=== PATIENT | female | born 1985 | race Caucasian/White ===

== ENCOUNTER → 2017-03-26 | Outpatient (CLI) | payer OTHER ==
--- NOTE | 2017-03-26 10:34 | US ---
EXAMINATION TYPE: US OB >= 14 wk fetus DATE OF EXAM: 03/26/2017 COMPARISON: None CLINICAL HISTORY: Z36 confirm dates, unknown dates TECHNIQUE: OBTA GESTATIONAL AGE / DATING Physician Established: (14 weeks/1 days) EDC: Dates by LMP: LMP unknown Dates by First Scan: No previous this is first scan Dates by Current Scan: (14 weeks/5 days) EDC: 09/19/2017 Beta HCG (if available): Not available at this time SURVEY IUP: Single PLACENTA: Posterior PREVIA: No Previa SHAKIRA: 11.4 cm Normal CERVICAL LENGTH (transabdominal: norm > 3.0cm): 3.5 cm BIOMETRY PRESENTATION: Vertex LIE: Longitudinal BPD: 2.6 cm 14 weeks / 4 days HC: 10.4 cm 14 weeks / 6 days AC: 8.9 cm 15 weeks / 1 days FL: 1.5 cm 14 weeks / 3 days ESTIMATED WEIGHT IN GRAMS: 106 grams ESTIMATED WEIGHT IN LBS/OZ: 0 lbs. 4 oz. WEIGHT PERCENTAGE BASED ON ESTABLISHED DATES: 80% HC/AC: 1.1 Normal FL/AC: 16.7 Normal HEART RATE: 159 bpm RHYTHM: Normal IMPRESSION: 1. Single intrauterine gestation estimated at 14 weeks 5 days gestation based on the current ultrasou nd measurements. This would have a calculated EDC of 09/19/2017. Correlate this with her physician est ablished EDC. 2. Cardiac activity measures 159 bpm.
== END | disposition home or self-care (01) ==
LOC: RADUSWWP 08:54
PROVIDERS: ATTEND Obstetrics & Gynecology
DX: Z36.89 Encounter for other specified antenatal screening (principal); Z3A.14 14 weeks gestation of pregnancy
CPT/HCPCS: 76801; 76805

== ENCOUNTER 2017-07-29 15:49 | Outpatient (CLI) | payer OTHER ==
[2017-07-29 16:49] LABS: ALT 23 U/L (9-52); AST 20 U/L (14-36); Blood Urea Nitrogen 10 mg/dL (7-17); LDH 411 U/L (313-618); Uric Acid 5.1 mg/dL (3.7-7.4)
[2017-07-29 16:59] LABS: Appearance,Urine Cloudy (Clear); Bacteria,Urine Rare /hpf; Bilirubin,Urine Negative (Negative); Blood,Urine Small (Negative); Color,Urine Yellow; Glucose,Urine (UA) Negative (Negative); Hyaline Casts,Urine 35 /lpf (0-2); Ketones,Urine Trace (Negative); Leukocyte Esterase,Urine Small (Negative); Mucus,Urine Few /hpf; Nitrite,Urine Negative (Negative); Protein,Urine 1+ (Negative); RBC,Urine 30 /hpf (0-5); Specific Gravity,Urine 1.028 (1.001-1.035); Squamous Epithelial Cell,Urine 14 /hpf (0-4); WBC,Urine 11 /hpf (0-5)
[2017-07-29 17:03] LABS: Basophils % (A) 0 %; Eosinophils % (A) 0 %; HCT 40.3 % (34.0-46.0); HGB 13.9 gm/dL (11.4-16.0); Lymphocytes # (A) 1.7 k/uL (1.0-4.8); Lymphocytes % (A) 18 %; MCH 30.8 pg (25.0-35.0); MCHC 34.4 g/dL (31.0-37.0); MCV 89.4 fL (80.0-100.0); Mean Platelet Volume 10.5; Monocytes # (A) 0.4 k/uL (0-1.0); Monocytes % (A) 4 %; Neutrophils # (A) 7.2 k/uL (1.3-7.7); Neutrophils % (A) 76 %; Platelet Count 127 k/uL (150-450); RDW 13.4 % (11.5-15.5); WBC 9.5 k/uL (3.8-10.6)
== END 2017-07-29 17:32 | disposition home or self-care (01) ==
LOC: FBPOP 15:49
PROVIDERS: ATTEND Obstetrics & Gynecology
DX: O13.3 Gestational [pregnancy-induced] hypertension without significant proteinuria, third trimester (principal); Z3A.32 32 weeks gestation of pregnancy
CPT/HCPCS: 59025; 81001; 82565; 82570; 83615; 84156; 84450; 84460; 84520; 84550; 85025

== ENCOUNTER 2017-09-19 06:06 | Inpatient (IN) | payer OTHER ==
--- NOTE | 2017-09-18 14:45 | P.HPOB ---
History of Present Illness H&P Date: 09/18/17 Chief Complaint: Repeat low transverse 31 year old presents for repeat low transverse possible tubal ligation. Review of Systems All systems: negative Constitutional: Denies chills, Denies fever Eyes: denies blurred vision, denies pain Ears, nose, mouth and throat: Denies headache, Denies sore throat Cardiovascular: Denies chest pain, Denies shortness of breath Respiratory: Denies cough Gastrointestinal: Denies abdominal pain, Denies diarrhea, Denies nausea, Denies vomiting Genitourinary: Denies dysuria, Denies hematuria Musculoskeletal: Denies myalgias Integumentary: Denies pruritus, Denies rash Neurological: Denies numbness, Denies weakness Psychiatric: Denies anxiety, Denies depression Endocrine: Denies fatigue, Denies weight change Past Medical History Past Medical History: Musculoskeletal Disorder (back pain) Additional Past Medical History / Comment(s): OB history: 2 EABs, 1 SAB, 2 previous c-sections. This is her sixth and she has had care with me since 12 weeks. O+, abs neg, Rub Imm, RPR NR, Hep B neg, toxo neg. GBS neg. UDS was done at 35 weeks and positive for benzodiazepines, marijuana and opiates. when confronted, pt admitted to taking norco a few times a week, some xanax, and smoking some marijuana. She was told several times these were not safe in . History of Any Multi-Drug Resistant Organisms: None Reported Past Surgical History: Section Additional Past Surgical History / Comment(s): cardiac ablation Past Psychological History: No Psychological Hx Reported, Anxiety, Depression Smoking Status: Light tobacco smoker Past Alcohol Use History: None Reported Past Drug Use History: Marijuana, Opiates Medications and Allergies Home Medications Medication Instructions Recorded Confirmed Type Citalopram Hydrobromide [CeleXA] 40 mg PO DAILY 07/29/17 07/29/17 History Zolpidem [Ambien] 10 mg PO HS PRN 07/29/17 07/29/17 History Allergies Allergy/AdvReac Type Severity Reaction Status Date / Time No Known Allergies Allergy Verified 07/29/17 15:54 Exam Osteopathic Statement: *. No significant issues noted on an osteopathic structural exam other than those noted in the History and Physical/Consult. Heart: RRR Lungs: CTAB Abdomen: soft, nontender Extremeties: neg tulio's Assessment and Plan (1) Previous section Status: Acute Code(s): Z98.891 - HISTORY OF UTERINE SCAR FROM PREVIOUS SURGERY SNOMED Code(s): 862078521 (2) 39 weeks gestation of Status: Acute Code(s): Z3A.39 - 39 WEEKS GESTATION OF SNOMED Code( s): 58225363 Plan: 1. repeat low transverse with possible tubal ligation
[2017-09-19] MEDS ORDERED: ceFAZolin IN SWFI 2 GM/20 ML SYRINGE IVP ONE (06:13)
[2017-09-19] MEDS ORDERED: CITRIC ACID-SODIUM CITRATE 15 ML CUP PO ONE (06:13)
[2017-09-19] MEDS: LACTATED RINGERS 1,000 ML IV SCH ×2 (06:20→15:34)
[2017-09-19 06:26] VITALS: BMI 40.7
[2017-09-19 06:54] LABS: Basophils % (A) 0 %; Eosinophils # (A) 0.1 k/uL (0-0.7); Eosinophils % (A) 1 %; HCT 37.1 % (34.0-46.0); Lymphocytes # (A) 2.1 k/uL (1.0-4.8); Lymphocytes % (A) 28 %; MCH 30.9 pg (25.0-35.0); MCHC 35.1 g/dL (31.0-37.0); MCV 87.8 fL (80.0-100.0); Mean Platelet Volume 12.8; Monocytes # (A) 0.4 k/uL (0-1.0); Monocytes % (A) 5 %; Neutrophils # (A) 4.7 k/uL (1.3-7.7); Neutrophils % (A) 64 %; RBC 4.22 m/uL (3.80-5.40); RDW 14.4 % (11.5-15.5); WBC 7.3 k/uL (3.8-10.6)
[2017-09-19 07:19] LABS: Platelet Count 99 k/uL (150-450)
[2017-09-19 07:21] LABS: Amphetamine Screen,Urine Not Detected (NotDetected); Benzodiazepines Screen,Urine Detected (NotDetected); Cocaine Screen,Urine Not Detected (NotDetected); Opiate Screen,Urine Not Detected (NotDetected); Phencyclidine Screen,Urine Not Detected (NotDetected); Urn Cannabinoid Scrn Detected (NotDetected)
[2017-09-19 07:22] LABS: Barbiturate Screen,Urine Not Detected (NotDetected); Methadone Screen, Urine Not Detected (NotDetected); Oxycodone Screen, Urine Not Detected (NotDetected); Tricyclic Antidepressant,Urine Not Detected (NotDetected)
[2017-09-19] MEDS ORDERED: fentaNYL (PF) 50 MCG/ML 2 ML AMP ONE (07:58)
[2017-09-19] MEDS ORDERED: PHENYLEPHRINE-0.9% NACL SYG 1 MG/10 ML SYRINGE ONE (07:58)
[2017-09-19] MEDS ORDERED: KETOROLAC 30 MG/ML 1 ML VIAL ONE (07:58)
[2017-09-19] MEDS ORDERED: ONDANSETRON 4 MG/2 ML VIAL ONE (07:58)
[2017-09-19] MEDS ORDERED: OXYTOCIN 10 UNIT/ML 1 ML VIAL ONE (07:58)
[2017-09-19] MEDS ORDERED: MORPHINE SULFATE (PF) 0.3 MG/0.3 ML SYR ONE (07:58)
[2017-09-19] MEDS ORDERED: NALBUPHINE 10 MG/ML VIAL (10ML MDV) ONE (07:58)
[2017-09-19] MEDS ORDERED: METOCLOPRAMIDE 5 MG/ML 2 ML VIAL IVP PRN (08:41)
[2017-09-19] MEDS ORDERED: NALOXONE 0.4 MG/ML 1 ML VIAL IV PRN (08:41)
[2017-09-19] MEDS ORDERED: ONDANSETRON 4 MG/2 ML VIAL IVP PRN (08:41)
[2017-09-19] MEDS ORDERED: HYDROmorphone 0.5 MG/0.5 ML SYRINGE IVP PRN (08:41)
[2017-09-19] MEDS ORDERED: HYDROcodone/APAP 7.5-325MG 1 EACH TAB PO PRN (08:48)
[2017-09-19] MEDS ORDERED: diphenhydrAMINE 50 MG/ML 1 ML VIAL IVP PRN ×2 (08:48)
[2017-09-19] MEDS ORDERED: ACETAMINOPHEN TAB 325 MG TAB PO PRN (08:48)
[2017-09-19] MEDS ORDERED: ZOLPIDEM 5 MG TAB PO PRN (08:48)
[2017-09-19] MEDS ORDERED: diphenhydrAMINE 50 MG CAP PO PRN (08:48)
[2017-09-19] MEDS ORDERED: diphenhydrAMINE 25 MG CAP PO PRN (08:48)
[2017-09-19] MEDS ORDERED: SIMETHICONE 80 MG CHEWABLE PO PRN (08:48)
--- NOTE | 2017-09-19 08:54 | P.OP ---
Date of Procedure: 09/19/17 Preoperative Diagnosis: 1. at 39 weeks 3 days 2. previous 3. family planning Postoperative Diagnosis: same Procedure(s) Performed: Repeat low transverse with tubal ligation Anesthesia: spinal Surgeon: Susie Manriquez Cutting Room Supervisor #1: Elder Henderson Estimated Blood Loss (ml): 500 IV fluids (ml): 600 Urine output (ml): 100 Pathology: other (placenta) Condition: stable Disposition: floor Operative Findings: viable infant, 9,9, weight 7#4oz Description of Procedure: Patient was taken to the operating room where spinal anesthesia was found be adequate. She was prepped and draped in normal sterile fashion in dorsal supine position with a leftward tilt. Pfannenstiel skin incision was made the scalpel and carried through to the underlying layer of fascia with the scalpel. Fascia was incised in midline and carried bilaterally with the Amaya scissors. The superior aspect of the fascial incision was grasped with David clamps elevated and the underlying rectus muscles dissected off with the Amaya's. Attention was then turned to inferior aspect of same incision which in a similar fashion was grasped tented up and the underlying rectus muscles dissected off with the Amaya's. The rectus muscles were the midline and the peritoneum was identified tented up and entered sharply with the scalpel. The incision was extended superiorly and inferiorly with good visualization of the bladder. The bladder blade was inserted and the vesicouterine peritoneum was incised the Metzenbaums then carried bilaterally and bladder flap created digitally. A low transverse incision was then made on the uterus with the scalpel. This was carried bilaterally and digital manner. Infant's head delivered atraumatically, nose and mouth bulb suctioned, cord clamped and cut, infant handed off to waiting nurses. Apgars 9,9, weight 7 lbs. 4 oz. Placenta delivered manually, intact with three-vessel cord. The uterus is exteriorized and cleared of all clots and debris. The uterine incision was closed with 0 Vicryl in a running locked fashion. Second layer of the same sutures used in imbricating fashion to obtain excellent hemostasis. Bladder flap was then reapproximated using 2-0 Vicryl in a running fashion. Both ovaries and tubes appeared normal. The right fallopian tube was grasped with a hemostat and a window was made in the mesosalpinx with the Bovie. The right fallopian tube was doubly ligated and a portion was removed. The pedicles were cauterized with the Bovie. The left fallopian tube was grasped with a hemostat and a window was made in the mesosalpinx with the Bovie. The left fallopian tube was doubly ligated and a portion was removed. The pedicles were cauterized with the Bovie. The uterus was placed back into the abdomen. The peritoneum was reapproximated using 2-0 Vicryl in a running fashion. The muscles were reapproximated using 2-0 Vicryl in interrupted fashion. The fascia was reapproximated using 0 Vicryl in a running fashion. The subcutaneous tissues closed with 3-0 Vicryl running fashion. The skin was closed solo. Patient tolerated the procedure well, sponge and instrument counts were correct times 2 and she was taken to the recovery room in stable condition.
[2017-09-19] MEDS ORDERED: OXYTOCIN 20 UNITS/1000 ML NS 1,000 ML IV SCH (09:00)
[2017-09-19] MEDS: HYDROmorphone 1 MG/ML 1 ML SYRINGE IVP PRN ×10 (09:57→23:35)
[2017-09-19] MEDS ORDERED: HYDROmorphone 1 MG/ML 1 ML SYRINGE IVP PRN (11:32)
[2017-09-19] MEDS: KETOROLAC 30 MG/ML 1 ML VIAL IVP PRN ×2 (15:32→23:10)
[2017-09-19] MEDS: diphenhydrAMINE 50 MG/ML 1 ML VIAL IVP PRN ×2 (23:23→23:35)
[2017-09-19] MEDS: SENNOSIDES-DOCUSATE SODIUM 1 EACH TAB PO SCH (23:55)
[2017-09-20] MEDS: LACTATED RINGERS 1,000 ML IV SCH ×2 (01:38→14:21)
[2017-09-20] MEDS: HYDROmorphone 1 MG/ML 1 ML SYRINGE IVP PRN (01:54)
--- NOTE | 2017-09-20 07:12 | P.PNOBGPC ---
Subjective - Subjective Patient reports: Reports appetite normal, Reports voiding normally, Reports pain well controlled, Reports ambulating normally : doing well Objective - Vital Signs Latest vital signs: Vital Signs Temp Pulse Resp BP Pulse Ox 09/20/17 05:00 15 09/20/17 04:00 97.9 F 85 15 135/72 98 09/20/17 03:00 18 09/20/17 01:00 15 09/20/17 00:00 98 F 90 15 133/70 09/19/17 23:00 18 09/19/17 21:00 15 09/19/17 20:00 97.9 F 84 15 133/71 09/19/17 19:00 15 09/19/17 17:00 18 99 09/19/17 16:00 97.8 F 86 18 115/58 99 09/19/17 14:55 16 09/19/17 13:02 97 09/19/17 12:50 18 09/19/17 12:00 97.3 F L 80 18 131/66 97 09/19/17 11:41 16 09/19/17 10:49 57 L 18 117/59 100 09/19/17 10:19 97.5 F L 72 18 114/57 97 09/19/17 09:49 74 16 105/61 96 09/19/17 09:41 16 93 L 09/19/17 09:34 77 16 101/55 99 09/19/17 09:19 97 16 97/54 100 09/19/17 09:04 95 16 99/55 100 09/19/17 08:49 97.6 F 82 16 103/52 97 Intake and Output 09/19/17 09/20/17 09/20/17 22:59 06:59 14:59 Intake Total 1960 Output Total 130 400 Balance 1830 -400 Intake: Intake, IV Titration 1000 Amount Lactated Ringers 1,000 ml 1000 @ 125 mls/hr IV .Q8H [facility] Rx#:[id number] Oral 960 Output: Urine 130 400 Other: Voiding Method Indwelling Catheter - Exam Lungs: bilateral: normal Chest: Normal S1, Normal S2 Extremities: Present: normal Abdomen: Present: normal appearance, soft. Absent: distention, tenderness Incision: Present: normal, dry, intact Uterus: Present: normal, firm - Labs Labs: Abnormal Lab Results - Last 24 Hours (Table) 09/19/17 09/19/17 Range/Units 06:13 06:14 Plt Count 99 L (150-450) k/uL U Benzodiazepines Scrn Detected H (NotDetected) U Marijuana (THC) Screen Detected H (NotDetected) Assessment and Plan Assessment: Patient this morning is sleeping. Vital signs are stable she's afebrile. Patient had some decreased urine output but responded very well to IV bolus. Patient has required a large amount of IV pain medications consistent with her opiate addiction. Plan today is to discontinue her Vital, check a CBC, discontinue IV pain medications and she'll have to alternate oral anti- inflammatories and [place]. I encouraged patient to shower and ambulate and she' ll continue regular diet. It is obvious this patient has been taking opiates as an outpatient during her and has developed a dependence. I instructed her that we need to discontinue her IV pain medications today. She does not appear to be in any acute pain in fact was sleeping when I saw her this morning. (1) Previous section Current Visit: No Status: Acute Code(s): Z98.891 - HISTORY OF UTERINE SCAR FROM PREVIOUS SURGERY SNOMED Code(s): 435958697
[2017-09-20] MEDS: HYDROcodone/APAP 7.5-325MG 1 EACH TAB PO PRN ×4 (08:18→20:16)
[2017-09-20] MEDS: SENNOSIDES-DOCUSATE SODIUM 1 EACH TAB PO SCH ×2 (08:18→20:16)
[2017-09-20 08:28] LABS: Basophils % (A) 0 %; Eosinophils # (A) 0.1 k/uL (0-0.7); Eosinophils % (A) 1 %; HCT 31.6 % (34.0-46.0); HGB 10.7 gm/dL (11.4-16.0); Lymphocytes # (A) 1.5 k/uL (1.0-4.8); Lymphocytes % (A) 22 %; MCH 30.5 pg (25.0-35.0); MCHC 33.7 g/dL (31.0-37.0); MCV 90.5 fL (80.0-100.0); Mean Platelet Volume 11.6; Monocytes # (A) 0.4 k/uL (0-1.0); Monocytes % (A) 5 %; Neutrophils # (A) 4.8 k/uL (1.3-7.7); Neutrophils % (A) 70 %; RBC 3.49 m/uL (3.80-5.40); RDW 14.7 % (11.5-15.5); WBC 6.9 k/uL (3.8-10.6)
[2017-09-20 08:39] LABS: Platelet Count 79 k/uL (150-450)
[2017-09-20] MEDS: IBUPROFEN 600 MG TAB PO PRN ×2 (16:15→22:09)
--- NOTE | 2017-09-20 16:34 | P.PN ---
Progress Note - Text Progress Note Date: 09/20/17 31-year-old female status post section with Duramorph spinal postop day #1. Patient doing well, no motor deficits no sensory deficits. Patient ambulating and tolerating diet well,
[2017-09-21] MEDS: HYDROcodone/APAP 7.5-325MG 1 EACH TAB PO PRN ×6 (00:11→21:02)
[2017-09-21] MEDS: IBUPROFEN 600 MG TAB PO PRN ×4 (04:37→22:27)
--- NOTE | 2017-09-21 07:22 | P.PNOBGPC ---
Subjective - Subjective Patient reports: Reports appetite normal, Reports voiding normally, Reports pain well controlled, Reports ambulating normally : doing well, in NICU Objective - Vital Signs Latest vital signs: Vital Signs Temp Pulse Resp BP Pulse Ox 09/20/17 23:30 98.4 F 72 16 146/87 09/20/17 16:00 98.4 F 81 18 139/83 100 09/20/17 09:00 16 09/20/17 07:59 98.1 F 87 16 132/87 Intake and Output 09/20/17 09/21/17 09/21/17 22:59 06:59 14:59 Intake Total 960 Output Total 350 Balance -350 960 Intake: Oral 960 Output: Urine 350 Other: # Voids 1 3 - Exam Lungs: bilateral: normal Chest: Normal S1, Normal S2 Extremities: Present: normal Abdomen: Present: normal appearance, soft. Absent: distention, tenderness Incision: Present: normal, dry, intact Uterus: Present: normal, firm - Labs Labs: Abnormal Lab Results - Last 24 Hours (Table) 09/20/17 Range/Units 07:45 RBC 3.49 L (3.80-5.40) m/uL Hgb 10.7 L (11.4-16.0) gm/dL Hct 31.6 L (34.0-46.0) % Plt Count 79 L (150-450) k/uL Assessment and Plan Assessment: Post operative day #2. Patient is resting without new complaints. Her pain is controllable on oral medications at this time. Vital signs are stable and she is afebrile. Her incision is intact and dry and she is having normal bleeding. CBC yesterday showed her platelets to be 79, where 99 on admission. Patient reports that she has had problems with thrombocytopenia with her baby 7 years ago and throughout this but she does not know the exact number. Plan at this time is to check another CBC today, continue routine postoperative care and most likely go home tomorrow. (1) Previous section Current Visit: No Status: Acute Code(s): Z98.891 - HISTORY OF UTERINE SCAR FROM PREVIOUS SURGERY SNOMED Code(s): 869338086
[2017-09-21 08:02] LABS: Basophils % (A) 0 %; Eosinophils # (A) 0.1 k/uL (0-0.7); Eosinophils % (A) 1 %; HCT 33.2 % (34.0-46.0); HGB 11.1 gm/dL (11.4-16.0); Lymphocytes # (A) 1.4 k/uL (1.0-4.8); Lymphocytes % (A) 17 %; MCH 30.1 pg (25.0-35.0); MCHC 33.6 g/dL (31.0-37.0); MCV 89.7 fL (80.0-100.0); Mean Platelet Volume 12.3; Monocytes # (A) 0.4 k/uL (0-1.0); Monocytes % (A) 5 %; Neutrophils # (A) 6.6 k/uL (1.3-7.7); Neutrophils % (A) 76 %; RDW 14.6 % (11.5-15.5); WBC 8.8 k/uL (3.8-10.6)
[2017-09-21 08:04] LABS: Platelet Count 90 k/uL (150-450)
[2017-09-21] MEDS: SENNOSIDES-DOCUSATE SODIUM 1 EACH TAB PO SCH ×2 (08:38→19:33)
[2017-09-21] MEDS: ESCITALOPRAM 20 MG TAB PO SCH (08:38)
[2017-09-22] MEDS: HYDROcodone/APAP 7.5-325MG 1 EACH TAB PO PRN ×2 (05:31→12:12)
[2017-09-22 08:07] LABS: Basophils % (A) 0 %; Eosinophils # (A) 0.1 k/uL (0-0.7); Eosinophils % (A) 2 %; HCT 34.1 % (34.0-46.0); HGB 11.3 gm/dL (11.4-16.0); Lymphocytes % (A) 26 %; MCH 30.2 pg (25.0-35.0); MCHC 33.1 g/dL (31.0-37.0); MCV 91.3 fL (80.0-100.0); Mean Platelet Volume 12.7; Monocytes # (A) 0.4 k/uL (0-1.0); Monocytes % (A) 5 %; Neutrophils % (A) 65 %; RBC 3.74 m/uL (3.80-5.40); RDW 14.6 % (11.5-15.5); WBC 7.7 k/uL (3.8-10.6)
[2017-09-22 08:08] LABS: Platelet Count 103 k/uL (150-450)
--- NOTE | 2017-09-22 08:39 | P.DS ---
Providers Date of admission: 09/19/17 06:06 Expected date of discharge: 09/22/17 Attending physician: Susie Manriquez Primary care physician: Stated None - Discharge Diagnosis(es) (1) Previous section Current Visit: No Status: Resolved (2) 39 weeks gestation of Current Visit: No Status: Resolved (3) Status post repeat low transverse section Current Visit: Yes Status: Acute Hospital Course: Pt presented for repeat low transverse with tubal ligation. She underwent this procedure without complications. Postoperatively her urine output was a little low but responded well to IV fluid bolus. Platelets went down to 79 postoperatively and were 99 preop, they did come up to 90 prior to discharge. Pain was controlled with iv dilaudid postoperative and then with norco and motrin. She will be discharged home POD #3 in stable condition to follow up with me in 1 week. Plan - Discharge Summary New Discharge Prescriptions: New Escitalopram [Lexapro] 20 mg PO DAILY #30 tab HYDROcodone/APAP 7.5-325MG [[place] 7.5-325] 1 each PO Q4HR PRN 3 Days #18 tab PRN Reason: Moderate Pain Ibuprofen [Motrin] 600 mg PO Q6HR PRN #30 tab PRN Reason: Mild Pain Or Fever >= 100.5 No Action Citalopram Hydrobromide [CeleXA] 40 mg PO DAILY Zolpidem [Ambien] 10 mg PO HS PRN PRN Reason: sleep Pnv No.95/Ferrous Fum/Folic AC [ Multivitamin Tablet] 1 tab PO ONCE Discharge Medication List Citalopram Hydrobromide [CeleXA] 40 mg PO DAILY 07/29/17 [History] Zolpidem [Ambien] 10 mg PO HS PRN 07/29/17 [History] Pnv No.95/Ferrous Fum/Folic AC [ Multivitamin Tablet] 1 tab PO ONCE [History] Escitalopram [Lexapro] 20 mg PO DAILY #30 tab 09/22/17 [Rx] HYDROcodone/APAP 7.5-325MG [[place] 7.5-325] 1 each PO Q4HR PRN 3 Days #18 tab [Rx] Ibuprofen [Motrin] 600 mg PO Q6HR PRN #30 tab 09/22/17 [Rx] Follow up Appointment(s)/Referral(s): Susie Manriquez DO [Doctor of Osteopathic Medicine] - 1 Week Discharge Disposition: HOME SELF-CARE
[2017-09-22] MEDS: ESCITALOPRAM 20 MG TAB PO SCH (08:59)
[2017-09-22] MEDS: SENNOSIDES-DOCUSATE SODIUM 1 EACH TAB PO SCH (08:59)
[2017-09-22] MEDS: IBUPROFEN 600 MG TAB PO PRN (09:00)
[2017-09-22 11:20] VITALS: BP 139/76; PULSE 77; RESP 18; TEMP 97.9
== END 2017-09-22 16:30 | disposition home or self-care (01) | DRG 765 ==
LOC: 4FBP 06:06
PROVIDERS: ADMIT Obstetrics & Gynecology; ATTEND Obstetrics & Gynecology
PROC: 0UB70ZZ Excision of Bilateral Fallopian Tubes, Open Approach (ICD-10-PCS; 2017-09-19)
PROC: 10D00Z1 Extraction of Products of Conception, Low, Open Approach (ICD-10-PCS; principal; 2017-09-19 08:00)
DX: O34.211 Maternal care for low transverse scar from previous cesarean delivery (principal); O99.324 Drug use complicating childbirth; F11.20 Opioid dependence, uncomplicated; O99.334 Smoking (tobacco) complicating childbirth; Z30.2 Encounter for sterilization; F17.200 Nicotine dependence, unspecified, uncomplicated; Z3A.39 39 weeks gestation of pregnancy; Z37.0 Single live birth; O99.344 Other mental disorders complicating childbirth; F32.9 Major depressive disorder, single episode, unspecified; M54.9 Dorsalgia, unspecified; N85.8 Other specified noninflammatory disorders of uterus; Z71.6 Tobacco abuse counseling; Z71.51 Drug abuse counseling and surveillance of drug abuser; Z79.899 Other long term (current) drug therapy
CPT/HCPCS: 80306; 85025; 86850; 86900; 86901; 88302; 88307

== ENCOUNTER → 2017-12-20 | Outpatient (CLI) | payer OTHER ==
--- NOTE | 2017-12-20 21:32 | XR ---
EXAMINATION TYPE: XR knee limited bilateral DATE OF EXAM: 12/20/2017 COMPARISON: NONE HISTORY: 32-year-old female with bilateral knee pain for a few months TECHNIQUE: 2 views each side FINDINGS: Joint spaces appear relatively maintained on these nonweightbearing views. Extensor mechanisms are in tact. No acute fracture, subluxation, or dislocation seen. No significant knee joint effusions. IMPRESSION: No acute osseous abnormality seen.
== END | disposition home or self-care (01) ==
LOC: RADXRMAIN 11:34
PROVIDERS: ATTEND Internal Medicine
DX: M25.561 Pain in right knee (principal); M25.562 Pain in left knee

== ENCOUNTER → 2018-04-02 | Outpatient (CLI) | payer OTHER ==
--- NOTE | 2018-04-02 22:41 | MR ---
EXAMINATION TYPE: MR lumbar spine wo con DATE OF EXAM: 04/02/2018 COMPARISON: Lumbar spine x-ray May 24, 2013. HISTORY: LBP, BLE weakness/numbness/pain TECHNIQUE: Multiplanar, multisequence imaging of the lumbar spine is performed without IV contrast. FINDINGS: Sagittal images of the lumbar spine show vertebral body heights and alignment to remain sat isfactory. There is disc desiccation with mild disc space narrowing L5-S1 level otherwise the interve rtebral discs demonstrate normal heights and hydration. No large posterior disc herniations are prese nt on sagittal images. The conus medullaris is normal in position and signal ending mid L1 level. T he bone marrow signal intensity is within normal limits. Axial images are degraded by motion artifact but show no large disc herniation, significant facet art hropathy, significant spinal canal stenosis, or bilateral neural foraminal narrowing at any lumbar le [place]. IMPRESSION: Mild degenerative changes L5-S1 level.
== END ==
LOC: RADMRIMAIN 21:33
PROVIDERS: ATTEND Internal Medicine
DX: M47.817 Spondylosis without myelopathy or radiculopathy, lumbosacral region (principal)
CPT/HCPCS: 72148

== ENCOUNTER → 2018-04-15 | Outpatient (CLI) | payer OTHER ==
--- NOTE | 2018-04-15 10:19 | MR ---
EXAMINATION TYPE: MR brain wo con DATE OF EXAM: 04/15/2018 COMPARISON: NONE HISTORY: Headache TECHNIQUE: Multiplanar, multisequence images of the brain and brainstem is performed without intravenous contras t. FINDINGS: Diffusion weighted images demonstrate no evidence of a recent infarct or other diffusion ab normality. There is no extra-axial fluid collection or significant white matter signal abnormality. The ventricular system and cisternal spaces are normal in size and appearance. The brain volume is age appropriate. Midline structures demonstrate normal morphology. The craniocervical junction appears within normal limits. There is undulation of the left optic nerve and slight subarachnoid prominence on T2 surround ing the optic nerves. This finding is nonspecific. The dural venous sinuses appear patent. The visual ized paranasal sinuses demonstrate mild mucosal thickening in the ethmoid and maxillary sinuses with hypoplastic frontal sinuses. Sphenoid sinuses and mastoid air cells are well aerated. IMPRESSION: 1. No acute infarct, midline shift or mass effect. No significant white matter abnormality. 2. Mild paranasal sinus disease. 3. Slight prominence of subarachnoid fluid stranding the optic nerves and undulation of the left opti c nerve. Correlation with ophthalmologic exam is recommended to evaluate for papilledema or increased intraocular pressure. Although this finding is nonspecific and can be seen in pseudotumor cerebri an d lumbar puncture with opening and closing pressures couldn't be performed if there is further suspic ion.
== END ==
LOC: RADMRIMAIN 07:59
PROVIDERS: ATTEND Internal Medicine
DX: R51 Headache (principal)
CPT/HCPCS: 70551

== ENCOUNTER 2018-05-29 07:49 | Emergency (ER) | payer OTHER ==
[2018-05-29 07:56] VITALS: RESP 18
[2018-05-29] MEDS ORDERED: SODIUM CHLORIDE 0.9% 1,000 ML IV STA (08:25)
[2018-05-29] MEDS ORDERED: LORazepam 1 MG TAB PO STA (08:25)
[2018-05-29] MEDS ORDERED: KETOROLAC 30 MG/ML 1 ML VIAL IVP STA (08:25)
--- NOTE | 2018-05-29 08:27 | ED ---
Chest Pain HPI - General Chief Complaint: Chest Pain Stated Complaint: Chest Pain Time Seen by Provider: 05/29/18 08:06 Source: patient, RN notes reviewed, old records reviewed Mode of arrival: wheelchair Limitations: no limitations - History of Present Illness Initial Comments: Patient is a 32-year-old female with a history of anxiety who presents emergency department today with onset of chest pain upon wakening for the past 2 days. Patient reports she's been under immense amount of stress. Patient states that she symptoms so short of breath as well. Patient states that she's had no nausea or vomiting. She also complains of some in her groin leg pain. She reports yesterday she was playing outside of her children and was exercising a lot. Patient states that she has had no fevers or chills, cough congestion. - Related Data Home Medications Medication Instructions Recorded Confirmed Zolpidem [Ambien] 10 mg PO HS PRN 07/29/17 05/29/18 ALPRAZolam [Xanax] 0.25 mg PO BID PRN 05/29/18 05/29/18 ARIPiprazole 15 mg PO DAILY 05/29/18 05/29/18 Buprenorphine HCl/Naloxone HCl 1 film SUBLINGUAL TID 05/29/18 05/29/18 [Suboxone 8 mg-2 mg Sl Film] FLUoxetine HCL 40 mg PO DAILY 05/29/18 05/29/18 QUEtiapine [SEROquel] 100 mg PO HS 05/29/18 05/29/18 traZODone HCL [Desyrel] 100 mg PO HS 05/29/18 05/29/18 Allergies Allergy/AdvReac Type Severity Reaction Status Date / Time No Known Allergies Allergy Verified 05/29/18 09:00 Review of Systems ROS Statement: Those systems with pertinent positive or pertinent negative responses have been documented in the HPI. ROS Other: All systems not noted in ROS Statement are negative. EKG Findings - EKG Comments: EKG Findings:: EKG shows sinus rhythm ventricular rate of 86 bpm. Verbal 162 ms. QRS duration 84 ms. QT QTc is 360/440 ms. No evidence of ST elevation or T-wave inversions. Past Medical History Past Medical History: No Reported History Additional Past Medical History / Comment(s): OB history: 2 EABs, 1 SAB, 2 previous c-sections. This is her sixth and she has had care with me since 12 weeks. O+, abs neg, Rub Imm, RPR NR, Hep B neg, toxo neg. GBS neg. UDS was done at 35 weeks and positive for benzodiazepines, marijuana and opiates. when confronted, pt admitted to taking norco a few times a week, some xanax, and smoking some marijuana. She was told several times these were not safe in . History of Any Multi-Drug Resistant Organisms: None Reported Past Surgical History: Section Additional Past Surgical History / Comment(s): cardiac ablation Past Anesthesia/Blood Transfusion Reactions: No Reported Reaction Past Psychological History: Anxiety, Depression Smoking Status: Former smoker Past Alcohol Use History: None Reported Past Drug Use History: None Reported - Past Family History Mother Family Medical History: Hypertension General Exam - General Exam Comments Initial Comments: 32-year-old female. Alert and oriented. No significant distress. Limitations: no limitations General appearance: alert, in no apparent distress Head exam: Present: atraumatic, normocephalic, normal inspection Eye exam: Present: normal appearance, PERRL, EOMI. Absent: scleral icterus, conjunctival injection, periorbital swelling ENT exam: Present: normal exam, mucous membranes moist Neck exam: Present: normal inspection. Absent: tenderness, meningismus, lymphadenopathy Respiratory exam: Present: normal lung sounds bilaterally. Absent: respiratory distress, wheezes, rales, rhonchi, stridor Cardiovascular Exam: Present: regular rate, normal rhythm, normal heart sounds. Absent: systolic murmur, diastolic murmur, rubs, gallop, clicks GI/Abdominal exam: Present: soft, normal bowel sounds. Absent: distended, te nderness, guarding, rebound, rigid Extremities exam: Present: normal inspection, full ROM, normal capillary refill. Absent: tenderness, pedal edema, joint swelling, calf tenderness Back exam: Present: normal inspection Neurological exam: Present: alert, oriented X3, CN II-XII intact Psychiatric exam: Present: normal affect, normal mood Course Vital Signs 05/29/18 07:53 Temperature 97.7 F Pulse Rate 82 Respiratory 18 Rate Blood Pressure 136/92 O2 Sat by Pulse 98 Oximetry Chest Pain MDM - MDM 32-year-old female presents emergency Department today with complaint of chest pain. She reports that she had a LEAKING THE PAST 2 MORNINGS. SHE'LL SUBMIT HIS ANXIETY. THIS TIME EKG WAS REVIEWED AND NORMAL. NORMAL LAB WORK. NORMAL CHEST X-RAY. PATIENT WAS GIVEN 1 BY MOUTH ATIVAN AND TORADOL. PATIENT WAS REEVALUATED AND REPORTS IMPROVEMENT OF SYMPTOMS. I DISCUSSED THE PATIENT PATIENT CAN FOLLOW-UP WITH HER PCP. DISCUSSED STRICT RETURN PARAMETERS. ALL QUESTIONS ANSWERED. Disposition Clinical Impression: Atypical chest pain, Anxiety, Muscle strain of right lower extremity Disposition: HOME SELF-CARE Condition: Good Instructions (If sedation given, give patient instructions): Relaxation and Meditation (ED), Chest Pain (ED) Additional Instructions: Patient advised some close follow-up with primary care physician. Motrin Tylenol for pain. Patient advised to return to the emergency department if any alarming signs or symptoms occur. Rest, remain hydrated. Patient should use relaxation techniques. Is patient prescribed a controlled substance at d/c from ED?: No Referrals: Tanja Smallwood MD [Primary Care Provider] - 1-2 days Time of Disposition: 09:26
[2018-05-29 08:44] LABS: Basophils % (A) 0 %; Eosinophils # (A) 0.2 k/uL (0-0.7); Eosinophils % (A) 4 %; HCT 38.8 % (34.0-46.0); HGB 13.2 gm/dL (11.4-16.0); Lymphocytes # (A) 1.9 k/uL (1.0-4.8); Lymphocytes % (A) 41 %; MCH 29.8 pg (25.0-35.0); MCV 87.6 fL (80.0-100.0); Monocytes # (A) 0.2 k/uL (0-1.0); Monocytes % (A) 5 %; Neutrophils # (A) 2.2 k/uL (1.3-7.7); Neutrophils % (A) 48 %; Platelet Count 170 k/uL (150-450); RBC 4.42 m/uL (3.80-5.40); RDW 13.6 % (11.5-15.5); WBC 4.6 k/uL (3.8-10.6)
[2018-05-29 08:45] LABS: Sodium 141 mmol/L (137-145)
[2018-05-29 08:48] LABS: ALT 33 U/L (9-52); AST 24 U/L (14-36); Albumin 4.3 g/dL (3.5-5.0); Alkaline Phosphatase 95 U/L (38-126); Anion Gap 10 mmol/L; Blood Urea Nitrogen 17 mg/dL (7-17); Calcium 9.5 mg/dL (8.4-10.2); Carbon Dioxide 23 mmol/L (22-30); Chloride 108 mmol/L (98-107); Glucose 85 mg/dL (74-99); Potassium 4.1 mmol/L (3.5-5.1); Total Bilirubin 0.5 mg/dL (0.2-1.3); Total Protein 7.1 g/dL (6.3-8.2)
--- NOTE | 2018-05-29 08:48 | XR ---
EXAMINATION TYPE: XR chest 2V DATE OF EXAM: 05/29/2018 COMPARISON: NONE HISTORY: Chest pain and shortness of breath TECHNIQUE: Frontal and lateral views of the chest are obtained. FINDINGS: There is no focal air space opacity, pleural effusion, or pneumothorax seen. The cardiac silhouette size is within normal limits. The osseous structures are intact. IMPRESSION: No acute cardiopulmonary process.
[2018-05-29 09:09] LABS: INR 0.9 (<1.2); Partial Thromboplastin Time 26.6 sec (22.0-30.0)
[2018-05-29 09:44] VITALS: BP 142/89; PULSE 74; TEMP 98.3
== END 2018-05-29 09:45 | disposition home or self-care (01) ==
LOC: EC 07:49
DX: S86.911A Strain of unspecified muscle(s) and tendon(s) at lower leg level, right leg, initial encounter (principal); R07.89 Other chest pain; F41.9 Anxiety disorder, unspecified; F32.9 Major depressive disorder, single episode, unspecified; Z87.891 Personal history of nicotine dependence; Z79.899 Other long term (current) drug therapy; X58.XXXA Exposure to other specified factors, initial encounter; Y92.89 Other specified places as the place of occurrence of the external cause
CPT/HCPCS: 36415; 71046; 80053; 83735; 84484; 85025; 85610; 85730; 93005; 96361; 96374; 99285

== ENCOUNTER 2018-12-09 08:02 | Observation (INO) | payer OTHER ==
[2018-12-09] MEDS ORDERED: SODIUM CHLORIDE 0.9% 1,000 ML IV STA (08:18)
[2018-12-09 08:59] LABS: Basophils % (A) 1 %; Eosinophils # (A) 0.1 k/uL (0-0.7); Eosinophils % (A) 2 %; HCT 40.8 % (34.0-46.0); Lymphocytes # (A) 1.5 k/uL (1.0-4.8); Lymphocytes % (A) 30 %; MCH 30.6 pg (25.0-35.0); MCHC 34.4 g/dL (31.0-37.0); MCV 88.9 fL (80.0-100.0); Mean Platelet Volume 8.7; Monocytes # (A) 0.2 k/uL (0-1.0); Monocytes % (A) 4 %; Neutrophils # (A) 3.1 k/uL (1.3-7.7); Neutrophils % (A) 61 %; Platelet Count 157 k/uL (150-450); RBC 4.59 m/uL (3.80-5.40); RDW 12.2 % (11.5-15.5)
[2018-12-09 09:07] LABS: ALT 20 U/L (9-52); AST 36 U/L (14-36); Acetaminophen <10.0 ug/mL; African American GFR (CKD) >90 (>60 ml/min/1.73 sqM); Albumin 4.9 g/dL (3.5-5.0); Alkaline Phosphatase 66 U/L (38-126); Anion Gap 8 mmol/L; Blood Urea Nitrogen 9 mg/dL (7-17); Calcium 9.3 mg/dL (8.4-10.2); Carbon Dioxide 27 mmol/L (22-30); Chloride 111 mmol/L (98-107); Glucose 97 mg/dL (74-99); Non-African American GFR(CKD) >90 (>60 ml/min/1.73 sqM); Salicylate <1.0 mg/dL; Sodium 146 mmol/L (137-145); Total Bilirubin 0.7 mg/dL (0.2-1.3); Total Protein 8.4 g/dL (6.3-8.2)
--- NOTE | 2018-12-09 09:09 | ED ---
Overdose HPI - General Chief Complaint: Overdose Stated Complaint: overdose Time Seen by Provider: 12/09/18 08:05 Source: EMS Mode of arrival: EMS Limitations: altered mental status - History of Present Illness Initial Comments: The patient is a 32-year-old female with past medical history of depression who presents to the emergency department as an overdose. The patient reports that she has been feeling depressed as her child is in foster care and there is plans to be permanently removed from her care. She states that last night she went over to a neighbor's house to drink alcohol. Reports to drinking approximately 6 alcoholic drinks. She also took approximately 20 Xanax tablets which were 0.25 mg. She then was reportedly supposed to meet her fianc in a park. [place] called police stating that she was missing from bed. They tracked her phone to a park where she was found laying, covered in dew. It was suspected that she had been there for the majority of the night. Patient does report that she was doing this because she is depressed. Denies ingestion of any other substances. Denies IV drug use. Denies any injuries and stated that she laid down in the field because she just wanted to be alone. Denies any pain. No chest pain or shortness of breath. Denies any blunt head trauma. Denies any headaches, fevers, chills, nausea or vomiting. There are no alleviating, precipitating or modifying factors. - Related Data Home Medications Medication Instructions Recorded Confirmed ALPRAZolam [Xanax] 0.25 mg PO BID PRN 05/29/18 12/09/18 FLUoxetine HCL 40 mg PO DAILY 05/29/18 12/09/18 QUEtiapine [SEROquel] 100 mg PO HS 05/29/18 12/09/18 Albuterol Sulfate [Ventolin HFA] 2 puff INHALATION Q4H PRN 12/09/18 12/09/18 Buprenorphine HCl/Naloxone HCl 1.5 film SUBLINGUAL DAILY 12/09/18 12/09/18 [Buprenorp-Nalox 8-2 mg Sl Film] Hydrocortisone Suppository 25 mg RECTAL BID 12/09/18 12/09/18 [Anusol-Hc] Pregabalin [Lyrica] 75 mg PO BID 12/09/18 12/09/18 hydrOXYzine PAMOATE [Vistaril] 25 mg PO HS 12/09/18 12/09/18 lamoTRIgine [LaMICtal] 50 mg PO BID 12/09/18 12/09/18 metFORMIN HCL 500 mg PO BID 12/09/18 12/09/18 traZODone HCL 100 mg PO HS 12/09/18 12/09/18 Allergies Allergy/AdvReac Type Severity Reaction Status Date / Time No Known Allergies Allergy Verified 12/09/18 09:03 Review of Systems ROS Statement: Those systems with pertinent positive or pertinent negative responses have been documented in the HPI. ROS Other: All systems not noted in ROS Statement are negative. Past Medical History Past Medical History: No Reported History Additional Past Medical History / Comment(s): OB history: 2 EABs, 1 SAB, 2 previous c-sections. This is her sixth and she has had care with me since 12 weeks. O+, abs neg, Rub Imm, RPR NR, Hep B neg, toxo neg. GBS neg. UDS was done at 35 weeks and positive for benzodiazepines, marijuana and opiates. when confronted, pt admitted to taking norco a few times a week, some xanax, and smoking some marijuana. She was told several times these were not safe in . History of Any Multi-Drug Resistant Organisms: None Reported Past Surgical History: Section Additional Past Surgical History / Comment(s): cardiac ablation Past Anesthesia/Blood Transfusion Reactions: No Reported Reaction Past Psychological History: Anxiety, Depression Smoking Status: Former smoker Past Alcohol Use History: None Reported Past Drug Use History: None Reported - Past Family History Mother Family Medical History: Hypertension Father Family Medical History: Diabetes Mellitus Additional Family Medical History / Comment(s): Pt states father is a "drug addict." General Exam Limitations: altered mental status General appearance: alert, appears intoxicated Head exam: Present: atraumatic, normocephalic, normal inspection Eye exam: Present: normal appearance, PERRL, EOMI. Absent: scleral icterus, conjunctival injection, periorbital swelling ENT exam: Present: normal exam, mucous membranes moist Neck exam: Present: normal inspection. Absent: tenderness, meningismus, lymphadenopathy Respiratory exam: Present: normal lung sounds bilaterally. Absent: respiratory distress, wheezes, rales, rhonchi, stridor Cardiovascular Exam: Present: regular rate, normal rhythm, normal heart sounds. Absent: systolic murmur, diastolic murmur, rubs, gallop, clicks GI/Abdominal exam: Present: soft, normal bowel sounds. Absent: distended, tenderness, guarding, rebound, rigid Extremities exam: Present: normal inspection, full ROM, normal capillary refill. Absent: tenderness, pedal edema, joint swelling, calf tenderness Back exam: Present: normal inspection Neurological exam: Present: alert, altered, CN II-XII intact Psychiatric exam: Present: depressed, agitated, suicidal ideation Skin exam: Present: warm, dry, intact, normal color. Absent: rash Course Vital Signs 12/09/18 12/09/18 12/09/18 08:04 10:00 12:00 Temperature 97.4 F L 97.5 F L Pulse Rate 77 75 82 Respiratory 16 12 14 Rate Blood Pressure 136/92 135/82 152/80 O2 Sat by Pulse 98 100 99 Oximetry Medical Decision Making - Medical Decision Making Upon arrival the patient is placed in trauma 1. A thorough history and physical exam was performed. The patient does arouse with tactile stimuli. She reports taking approximately 20, 0.25 mg Xanax and drinking 6 alcoholic beverages b ecause she was overtly depressed. Laboratory studies were conducted. There are do reveal a sodium of 146, potassium 5.3, creatinine 111. Toxicology is positive for opiates and benzodiazepines. Alcohol is 219. CT of the patient's brain demonstrates no acute intracranial hemorrhage or mass effect or midline shift. I do discuss these results with the patient. Her family is at bedside. The patient does continue to remain quite sedated. Because this I did recommend hospital admission. A call discuss case with Dr. lange who accepted admission. Psychiatry be placed on consult. Patient remained in stable condition was transported to the floor - Lab Data Result diagrams: 12/09/18 08:23 12/10/18 07:28 Lab Results 12/09/18 12/09/18 12/09/18 Range/Units 08:23 08:23 08:23 WBC 5.0 (3.8-10.6) k/uL RBC 4.59 (3.80-5.40) m/uL Hgb 14.0 (11.4-16.0) gm/dL Hct 40.8 (34.0-46.0) % MCV 88.9 (80.0-100.0) fL MCH 30.6 (25.0-35.0) pg MCHC 34.4 (31.0-37.0) g/dL RDW 12.2 (11.5-15.5) % Plt Count 157 (150-450) k/uL Neutrophils % 61 % Lymphocytes % 30 % Monocytes % 4 % Eosinophils % 2 % Basophils % 1 % Neutrophils # 3.1 (1.3-7.7) k/uL Lymphocytes # 1.5 (1.0-4.8) k/uL Monocytes # 0.2 (0-1.0) k/uL Eosinophils # 0.1 (0-0.7) k/uL Basophils # 0.0 (0-0.2) k/uL Sodium 146 H (137-145) mmol/L Potassium 5.3 H (3.5-5.1) mmol/L Chloride 111 H (98-107) mmol/L Carbon Dioxide 27 (22-30) mmol/L Anion Gap 8 mmol/L BUN 9 (7-17) mg/dL Creatinine 0.60 (0.52-1.04) mg/dL Est GFR (CKD-EPI)AfAm >90 (>60 ml/min/1.73 sqM) Est GFR (CKD-EPI)NonAf >90 (>60 ml/min/1.73 sqM) Glucose 97 (74-99) mg/dL Plasma Lactic Acid Winston (0.7-2.0) mmol/L Calcium 9.3 (8.4-10.2) mg/dL Total Bilirubin 0.7 (0.2-1.3) mg/dL AST 36 (14-36) U/L ALT 20 (9-52) U/L Alkaline Phosphatase 66 (38-126) U/L Total Protein 8.4 H (6.3-8.2) g/dL Albumin 4.9 (3.5-5.0) g/dL HCG, Qual Urine HCG, Qual (Not Detectd) Salicylates <1.0 mg/dL Urine Opiates Screen Detected H (NotDetected) Ur Oxycodone Screen Not Detected (NotDetected) Urine Methadone Screen Not Detected (NotDetected) Ur Propoxyphene Screen Not Detected (NotDetected) Acetaminophen <10.0 ug/mL Ur Barbiturates Screen Not Detected (NotDetected) U Tricyclic Antidepress Not Detected (NotDetected) Ur Phencyclidine Scrn Not Detected (NotDetected) Ur Amphetamines Screen Not Detected (NotDetected) U Methamphetamines Scrn Not Detected (NotDetected) U Benzodiazepines Scrn Detected H (NotDetected) Urine Cocaine Screen Not Detected (NotDetected) U Marijuana (THC) Screen Not Detected (NotDetected) Serum Alcohol 219 H* mg/dL 12/09/18 12/09/18 12/09/18 Range/Units 08:23 08:23 08:23 WBC (3.8-10.6) k/uL RBC (3.80-5.40) m/uL Hgb (11.4-16.0) gm/dL Hct (34.0-46.0) % MCV (80.0-100.0) fL MCH (25.0-35.0) pg MCHC (31.0-37.0) g/dL RDW (11.5-15.5) % Plt Count (150-450) k/uL Neutrophils % % Lymphocytes % % Monocytes % % Eosinophils % % Basophils % % Neutrophils # (1.3-7.7) k/uL Lymphocytes # (1.0-4.8) k/uL Monocytes # (0-1.0) k/uL Eosinophils # (0-0.7) k/uL Basophils # (0-0.2) k/uL Sodium (137-145) mmol/L Potassium (3.5-5.1) mmol/L Chloride (98-107) mmol/L Carbon Dioxide (22-30) mmol/L Anion Gap mmol/L BUN (7-17) mg/dL Creatinine (0.52-1.04) mg/dL Est GFR (CKD-EPI)AfAm (>60 ml/min/1.73 sqM) Est GFR (CKD-EPI)NonAf (>60 ml/min/1.73 sqM) Glucose (74-99) mg/dL Plasma Lactic Acid Winston 1.8 (0.7-2.0) mmol/L Calcium (8.4-10.2) mg/dL Total Bilirubin (0.2-1.3) mg/dL AST (14-36) U/L ALT (9-52) U/L Alkaline Phosphatase (38-126) U/L Total Protein (6.3-8.2) g/dL Albumin (3.5-5.0) g/dL HCG, Qual Not Detected Urine HCG, Qual Not Detected (Not Detectd) Salicylates mg/dL Urine Opiates Screen (NotDetected) Ur Oxycodone Screen (NotDetected) Urine Methadone Screen (NotDetected) Ur Propoxyphene Screen (NotDetected) Acetaminophen ug/mL Ur Barbiturates Screen (NotDetected) U Tricyclic Antidepress (NotDetected) Ur Phencyclidine Scrn (NotDetected) Ur Amphetamines Screen (NotDetected) U Methamphetamines Scrn (NotDetected) U Benzodiazepines Scrn (NotDetected) Urine Cocaine Screen (NotDetected) U Marijuana (THC) Screen (NotDetected) Serum Alcohol mg/dL - EKG Data EKG Comments: EKG demonstrates normal sinus rhythm with a ventricular rate of 79. MS interval 170. QRS of 98. QTC 435. There are no acute ST segment elevations or depressions concerning for ischemic change. No signs of for Parkinson White or Brugada syndrome Disposition Clinical Impression: Depression, Benzodiazepine overdose, Alcohol intoxication Disposition: ADMITTED IP TO THIS HOSP Condition: Serious Is patient prescribed a controlled substance at d/c from ED?: No Decision to Admit Reason: Admit from EC Decision Date: 12/09/18 Decision Time: 10:09
--- NOTE | 2018-12-09 09:14 | XR ---
EXAMINATION TYPE: XR chest 1V portable DATE OF EXAM: 12/09/2018 COMPARISON: 05/29/2018 HISTORY: Overdose. Altered mental status. TECHNIQUE: Single frontal view of the chest is obtained. FINDINGS: Very mild cephalization in comparison to the prior. There is no focal air space opacity, p leural effusion, or pneumothorax seen. The cardiac silhouette size is within normal limits. The os seous structures are intact. IMPRESSION: Very mild new cephalization in comparison to the prior exam. Minimal pulmonary vascular congestion.
[2018-12-09 09:17] LABS: Alcohol 219 mg/dL; Potassium 5.3 mmol/L (3.5-5.1)
[2018-12-09 09:22] LABS: Amphetamine Screen,Urine Not Detected (NotDetected); Barbiturate Screen,Urine Not Detected (NotDetected); Benzodiazepines Screen,Urine Detected (NotDetected); Cocaine Screen,Urine Not Detected (NotDetected); Methadone Screen, Urine Not Detected (NotDetected); Opiate Screen,Urine Detected (NotDetected); Oxycodone Screen, Urine Not Detected (NotDetected); Phencyclidine Screen,Urine Not Detected (NotDetected); Tricyclic Antidepressant,Urine Not Detected (NotDetected); Urn Cannabinoid Scrn Not Detected (NotDetected)
[2018-12-09] MEDS ORDERED: NALOXONE 0.4 MG/ML 1 ML VIAL IV PRN (10:24)
--- NOTE | 2018-12-09 10:57 | CT ---
EXAMINATION TYPE: CT brain wo con DATE OF EXAM: 12/09/2018 COMPARISON: MR brain dated 04/15/2018 HISTORY: Overdose. Altered mental status. CT DLP: 1098.4 mGycm. Automated Exposure Control for Dose Reduction was Utilized. TECHNIQUE: CT scan of the head is performed without contrast. FINDINGS: There is no acute intracranial hemorrhage, mass effect, or midline shift identified. No suspicious extra-axial fluid collection. The ventricles and sulci are within normal limits in size. The globes are intact and the visualized sinuses are clear. Frontal sinuses are noted to be aplastic. IMPRESSION: No acute intracranial hemorrhage, mass effect, or midline shift is seen.
[2018-12-09] MEDS ORDERED: IBUPROFEN 600 MG TAB PO STA (11:24)
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
[2018-12-09] MEDS: PREGABALIN 75 MG CAP PO SCH (20:33)
[2018-12-09] MEDS: THIAMINE 100 MG TAB PO SCH (20:33)
[2018-12-09] MEDS: FAMOTIDINE 20 MG/2 ML VIAL IV SCH (20:33)
[2018-12-09] MEDS: lamoTRIgine 25 MG TAB PO SCH (20:44)
[2018-12-09] MEDS: metFORMIN 500 MG TAB PO SCH (20:44)
[2018-12-09] MEDS: HEPARIN SODIUM,PORCINE 5,000 UNIT/ML 1 ML VIAL SQ SCH (20:44)
[2018-12-09] MEDS: HYDROCORTISONE SUPPOSITORY 25 MG SUPP RECTAL SCH (20:44)
[2018-12-09] MEDS ORDERED: QUEtiapine 100 MG TAB PO SCH (21:00)
[2018-12-09] MEDS ORDERED: traZODone HCL 100 MG TAB PO SCH (21:00)
[2018-12-09] MEDS ORDERED: hydrOXYzine PAMOATE 25 MG CAP PO SCH (21:00)
[2018-12-10] MEDS: NALOXONE HCL SUBLINGUAL SCH ×2 (00:11→08:09)
[2018-12-10] MEDS: [UNRECOGNIZED DRUG - OTHER] SUBLINGUAL SCH ×2 (00:11→08:09)
[2018-12-10] MEDS: BUPRENORPHINE HCL SUBLINGUAL SCH ×2 (00:11→08:09)
[2018-12-10] MEDS: SODIUM CHLORIDE 0.9% 1,000 ML IV SCH ×3 (03:46→05:53)
[2018-12-10 07:55] LABS: African American GFR (CKD) >90 (>60 ml/min/1.73 sqM); Anion Gap 5 mmol/L; Blood Urea Nitrogen 11 mg/dL (7-17); Carbon Dioxide 27 mmol/L (22-30); Chloride 109 mmol/L (98-107); Glucose 99 mg/dL (74-99); Non-African American GFR(CKD) >90 (>60 ml/min/1.73 sqM); Sodium 141 mmol/L (137-145)
[2018-12-10] MEDS: lamoTRIgine 25 MG TAB PO SCH (08:08)
[2018-12-10] MEDS: HYDROCORTISONE SUPPOSITORY 25 MG SUPP RECTAL SCH (08:08)
[2018-12-10] MEDS: metFORMIN 500 MG TAB PO SCH (08:08)
[2018-12-10] MEDS: HEPARIN SODIUM,PORCINE 5,000 UNIT/ML 1 ML VIAL SQ SCH (08:09)
[2018-12-10] MEDS: FAMOTIDINE 20 MG/2 ML VIAL IV SCH (08:14)
[2018-12-10] MEDS: PREGABALIN 75 MG CAP PO SCH (08:14)
[2018-12-10] MEDS: THIAMINE 100 MG TAB PO SCH (08:14)
[2018-12-10] MEDS ORDERED: FLUoxetine HCL 20 MG CAP PO SCH (09:00)
[2018-12-10] MEDS ORDERED: BUPRENORPHINE HCL SUBLINGUAL SCH (09:00)
[2018-12-10] MEDS ORDERED: [UNRECOGNIZED DRUG - OTHER] SUBLINGUAL SCH (09:00)
[2018-12-10] MEDS ORDERED: NALOXONE HCL SUBLINGUAL SCH (09:00)
[2018-12-10 11:44] VITALS: BP 152/96; PULSE 79; RESP 18; TEMP 98.6
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
[2018-12-10] MEDS ORDERED: FAMOTIDINE 20 MG TAB PO SCH (21:00)
== END 2018-12-10 13:09 | disposition home or self-care (01) ==
LOC: SUPCPDRO 08:02 → EC 08:02 → 3NMEDONC 10:24
PROVIDERS: ADMIT Internal Medicine; ATTEND Internal Medicine
DX: T42.4X2A Poisoning by benzodiazepines, intentional self-harm, initial encounter (principal); G93.41 Metabolic encephalopathy; F10.129 Alcohol abuse with intoxication, unspecified; Y90.7 Blood alcohol level of 200-239 mg/100 ml; F32.9 Major depressive disorder, single episode, unspecified; F41.9 Anxiety disorder, unspecified; F17.200 Nicotine dependence, unspecified, uncomplicated; G89.29 Other chronic pain; G43.909 Migraine, unspecified, not intractable, without status migrainosus; G62.9 Polyneuropathy, unspecified; M54.42 Lumbago with sciatica, left side; M54.41 Lumbago with sciatica, right side; Z79.84 Long term (current) use of oral hypoglycemic drugs; Z79.899 Other long term (current) drug therapy; Z87.440 Personal history of urinary (tract) infections; Z81.3 Family history of other psychoactive substance abuse and dependence; Z82.49 Family history of ischemic heart disease and other diseases of the circulatory system; Z83.3 Family history of diabetes mellitus
CPT/HCPCS: 96376; 96374; 99285; 36415; 93005; 80053; 80048; 83605; 85025; 81025; 84703; 80306; 83520; 71045; 70450; G0378 ×2; G0480 ×2; 80320; 80329

== ENCOUNTER 2019-02-23 18:29 | Emergency (ER) | payer OTHER ==
[2019-02-23 18:40] VITALS: BP 137/93; PULSE 90; RESP 18; TEMP 98.1
[2019-02-23] MEDS ORDERED: INFLUENZA VACCINE (6 MOS+) 60 MCG/0.5 ML SYRINGE IM ONE (18:50)
--- NOTE | 2019-02-23 18:58 | ED ---
General Adult HPI - General Chief complaint: Recheck/Abnormal Lab/Rx Stated complaint: Flu Shot Time Seen by Provider: 02/23/19 18:42 Source: patient Mode of arrival: ambulatory Limitations: no limitations - History of Present Illness Initial comments: patient is a 33-year-old female with no significant past medical history presenting to the emergency department with a chief complaint of influenza prevention. She states her son was diagnosed yesterday with influenza a and she would like a flu shot in order to prevent the illness spreading to everyone else in the household. She reports that her fianc also recently had flulike symptoms that began yesterday after her son was diagnosed. She would also like her daughter to get the flu shot as well. She has no other complaints at this time. - Related Data Home Medications Medication Instructions Recorded Confirmed ALPRAZolam [Xanax] 0.25 mg PO BID PRN 05/29/18 12/09/18 FLUoxetine HCL 40 mg PO DAILY 05/29/18 12/09/18 QUEtiapine [SEROquel] 100 mg PO HS 05/29/18 12/09/18 Albuterol Sulfate [Ventolin HFA] 2 puff INHALATION Q4H PRN 12/09/18 12/09/18 Buprenorphine HCl/Naloxone HCl 1.5 film SUBLINGUAL DAILY 12/09/18 12/09/18 [Buprenorp-Nalox 8-2 mg Sl Film] Hydrocortisone Suppository 25 mg RECTAL BID 12/09/18 12/09/18 [Anusol-Hc] Pregabalin [Lyrica] 75 mg PO BID 12/09/18 12/09/18 hydrOXYzine PAMOATE [Vistaril] 25 mg PO HS 12/09/18 12/09/18 lamoTRIgine [LaMICtal] 50 mg PO BID 12/09/18 12/09/18 metFORMIN HCL 500 mg PO BID 12/09/18 12/09/18 traZODone HCL 100 mg PO HS 12/09/18 12/09/18 Allergies Allergy/AdvReac Type Severity Reaction Status Date / Time No Known Allergies Allergy Verified 12/09/18 09:03 Review of Systems ROS Statement: Those systems with pertinent positive or pertinent negative responses have been documented in the HPI. ROS Other: All systems not noted in ROS Statement are negative. Past Medical History Past Medical History: No Reported History Additional Past Medical History / Comment(s): OB history: 2 EABs, 1 SAB, 2 previous c-sections. This is her sixth and she has had care with me since 12 weeks. O+, abs neg, Rub Imm, RPR NR, Hep B neg, toxo neg. GBS neg. UDS was done at 35 weeks and positive for benzodiazepines, marijuana and opiates. when confronted, pt admitted to taking norco a few times a week, some xanax, and smoking some marijuana. She was told several times these were not safe in . History of Any Multi-Drug Resistant Organisms: None Reported Past Surgical History: Section Additional Past Surgical History / Comment(s): cardiac ablation Past Anesthesia/Blood Transfusion Reactions: No Reported Reaction Past Psychological History: Anxiety, Depression Smoking Status: Former smoker Past Alcohol Use History: None Reported Past Drug Use History: None Reported - Past Family History Mother Family Medical History: Hypertension Father Family Medical History: Diabetes Mellitus Additional Family Medical History / Comment(s): Pt states father is a "drug addict." General Exam Limitations: no limitations General appearance: alert, in no apparent distress Head exam: Present: atraumatic, normocephalic, normal inspection Eye exam: Present: normal appearance, PERRL, EOMI Pupils: Present: normal accommodation ENT exam: Present: normal exam, normal oropharynx, mucous membranes moist Neck exam: Present: normal inspection, full ROM. Absent: lymphadenopathy Respiratory exam: Present: normal lung sounds bilaterally. Absent: wheezes Cardiovascular Exam: Present: regular rate, normal rhythm, normal heart sounds Extremities exam: Present: normal inspection, full ROM Back exam: Present: normal inspection, full ROM Neurological exam: Present: alert, oriented X3 Psychiatric exam: Present: normal affect, normal mood Skin exam: Present: warm, dry, intact, normal color Course Vital Signs 02/23/19 18:37 Temperature 98.1 F Pulse Rate 90 Respiratory 18 Rate Blood Pressure 137/93 O2 Sat by Pulse 95 Oximetry Medical Decision Making - Medical Decision Making patient is a 33-year-old female presenting to the emergency room with a chief complaint of influenza prevention. patient given flu shot as she requested. Physical examination unremarkable. Patient advised to follow-up with primary care if she develops any flulike symptoms. no testing warranted at this time. S trict return parameters were thoroughly discussed with patient was understanding and agreeable. Case discussed with physician. Disposition Clinical Impression: Influenza vaccination given Disposition: HOME SELF-CARE Condition: Stable Instructions (If sedation given, give patient instructions): Influenza Virus Vaccine (By injection) Additional Instructions: Please follow with primary care. Please return to emergency department if symptoms worsen. Is patient prescribed a controlled substance at d/c from ED?: No Referrals: None,Stated [Primary Care Provider] - 1-2 days Time of Disposition: 18:58
== END 2019-02-23 20:14 | disposition home or self-care (01) ==
LOC: EC 18:29
DX: Z23 Encounter for immunization (principal); F41.9 Anxiety disorder, unspecified; F32.9 Major depressive disorder, single episode, unspecified; Z79.84 Long term (current) use of oral hypoglycemic drugs; Z79.899 Other long term (current) drug therapy; Z87.891 Personal history of nicotine dependence
CPT/HCPCS: 90686; 99281; 90471; G0008

== ENCOUNTER → 2019-03-22 | Outpatient (CLI) | payer OTHER ==
[2019-03-22 13:58] LABS: Basophils % (A) 0 %; Eosinophils # (A) 0.1 k/uL (0-0.7); Eosinophils % (A) 2 %; HCT 40.6 % (34.0-46.0); HGB 13.5 gm/dL (11.4-16.0); Lymphocytes # (A) 1.7 k/uL (1.0-4.8); Lymphocytes % (A) 27 %; MCH 29.4 pg (25.0-35.0); MCHC 33.2 g/dL (31.0-37.0); MCV 88.5 fL (80.0-100.0); Mean Platelet Volume 11.1; Monocytes # (A) 0.2 k/uL (0-1.0); Monocytes % (A) 4 %; Neutrophils # (A) 4.1 k/uL (1.3-7.7); Neutrophils % (A) 66 %; Platelet Count 145 k/uL (150-450); RBC 4.58 m/uL (3.80-5.40); RDW 12.6 % (11.5-15.5); WBC 6.2 k/uL (3.8-10.6)
[2019-03-22 21:47] LABS: ALT 17 U/L (8-44); AST 20 U/L (13-35); African American GFR (CKD) 132.9 (60.0-200.0); Albumin/Globulin Ratio 2.18 (1.60-3.17); Alkaline Phosphatase 77 U/L (41-126); BUN/Creat Ratio 18.57 Ratio (12.00-20.00); Bilirubin, Conjugated <0.20 mg/dL (0.20-0.40); Calcium 9.5 mg/dL (8.7-10.3); Carbon Dioxide 24.1 mmol/L (21.6-31.8); Chloride 107 mmol/L (96-109); Chol/HDL Ratio 2.06; Cholesterol 148 mg/dL (0-200); Globulin 2.2 g/dL (1.6-3.3); Glucose 97 mg/dL (70-110); LDL Cholesterol,Calculated 61.6 mg/dL (0.0-131.0); Non-African American GFR(CKD) 114.6 (60.0-200.0); Potassium 4.2 mmol/L (3.5-5.5); Sodium 141 mmol/L (135-145); Total Bilirubin 0.4 mg/dL (0.2-1.2)
[2019-03-22 21:54] LABS: Urine Alcohol Negative (Negative); Urine Barbiturate Negative (Negative); Urine Cocaine Negative (Negative); Urine Methadone Negative (Negative); Urine Opiates Negative (Negative); Urine Phencyclidine Negative (Negative)
[2019-03-22 23:25] LABS: Hemoglobin A1C 4.9 % (4.0-6.0)
== END | disposition home or self-care (01) ==
LOC: LABWHC1 13:02
PROVIDERS: ATTEND Clinical Nurse Specialist Psychiatric/Mental Health
DX: F33.1 Major depressive disorder, recurrent, moderate (principal)
CPT/HCPCS: 36415; 80053; 80061; 80306; 82248; 82306; 83036; 84439; 84443; 84479; 85025

== ENCOUNTER 2021-01-22 14:01 | Emergency (ER) | payer OTHER ==
[2021-01-22] MEDS ORDERED: SODIUM CHLORIDE 0.9% 500 ML 500 ML IV STA (14:30)
--- NOTE | 2021-01-22 15:02 | ED ---
Seizure HPI - General Source: patient, EMS, RN notes reviewed Mode of arrival: ambulatory Limitations: no limitations <Eber Newby - Last Filed: 01/22/21 17:18> <Tanya Marshall - Last Filed: 01/25/21 00:33> - General Chief Complaint: Seizure Stated Complaint: Seizure Time Seen by Provider: 01/22/21 14:16 - History of Present Illness Initial Comments: 35-year-old female presents emergency department via EMS with complaint of seizure. This was witnessed seizure by patient's daughter at home patient has no history of seizures. Patient noted to have Blood in her cheek, patient noted have a bite quyen to her tongue. Patient states she's had recent medication changes including adding Zyprexa, Klonopin. She also takes ibuprofen, Suboxone. Patient denies any current chest pain. She states her mouth hurts, headache is mild blurred vision. Patient was found to be postictal upon arrival EMS. Patient still has some mild confusion. (Eber Newby) - Related Data Home Medications Medication Instructions Recorded Confirmed ALPRAZolam [Xanax] 0.25 mg PO BID PRN 05/29/18 12/09/18 FLUoxetine HCL 40 mg PO DAILY 05/29/18 12/09/18 QUEtiapine [SEROquel] 100 mg PO HS 05/29/18 12/09/18 Albuterol Sulfate [Ventolin HFA] 2 puff INHALATION Q4H PRN 12/09/18 12/09/18 Buprenorphine HCl/Naloxone HCl 1.5 film SUBLINGUAL DAILY 12/09/18 12/09/18 [Buprenorphine-Nalox 8-2Mg Film] Hydrocortisone Suppository 25 mg RECTAL BID 12/09/18 12/09/18 [Anusol-Hc] Pregabalin [Lyrica] 75 mg PO BID 12/09/18 12/09/18 hydrOXYzine pamoate [Vistaril] 25 mg PO HS 12/09/18 12/09/18 lamoTRIgine [LaMICtal] 50 mg PO BID 12/09/18 12/09/18 metFORMIN HCL 500 mg PO BID 12/09/18 12/09/18 traZODone HCL 100 mg PO HS 12/09/18 12/09/18 Allergies Allergy/AdvReac Type Severity Reaction Status Date / Time No Known Allergies Allergy Verified 01/22/21 14:13 Review of Systems ROS Other: All systems not noted in ROS Statement are negative. <TonjaoneydaEber Frausto - Last Filed: 01/22/21 17:18> ROS Other: All systems not noted in ROS Statement are negative. <Tanya Marshall Iker - Last Filed: 01/25/21 00:33> ROS Statement: Those systems with pertinent positive or pertinent negative responses have been documented in the HPI. Past Medical History Past Medical History: No Reported History Additional Past Medical History / Comment(s): OB history: 2 EABs, 1 SAB, 2 previous c-sections. This is her sixth and she has had care with me since 12 weeks. O+, abs neg, Rub Imm, RPR NR, Hep B neg, toxo neg. GBS neg. UDS was done at 35 weeks and positive for benzodiazepines, marijuana and opiates. when confronted, pt admitted to taking norco a few times a week, some xanax, and smoking some marijuana. She was told several times these were not safe in . History of Any Multi-Drug Resistant Organisms: None Reported Past Surgical History: Section Additional Past Surgical History / Comment(s): cardiac ablation Past Anesthesia/Blood Transfusion Reactions: No Reported Reaction Past Psychological History: Anxiety, Depression Smoking Status: Vaper Past Alcohol Use History: None Reported Past Drug Use History: None Reported - Past Family History Mother Family Medical History: Hypertension Father Family Medical History: Diabetes Mellitus Additional Family Medical History / Comment(s): Pt states father is a "drug addict." <KeyonnaEber - Last Filed: 01/22/21 17:18> General Exam Limitations: no limitations General appearance: alert, in no apparent distress Head exam: Present: atraumatic, normocephalic, normal inspection Eye exam: Present: normal appearance, PERRL, EOMI. Absent: scleral icterus, conjunctival injection, periorbital swelling ENT exam: Present: mucous membranes moist, TM's normal bilaterally. Absent: normal oropharynx (Right quyen noted to the tongue) Neck exam: Present: normal inspection, full ROM. Absent: tenderness, meningismus, lymphadenopathy Respiratory exam: Present: normal lung sounds bilaterally. Absent: respiratory distress, wheezes, rales, rhonchi, stridor Cardiovascular Exam: Present: regular rate, normal rhythm, normal heart sounds. Absent: systolic murmur, diastolic murmur, rubs, gallop, clicks Neurological exam: Present: alert, CN II-XII intact, reflexes normal. Absent: oriented X3, motor sensory deficit Skin exam: Present: warm, dry, intact, normal color. Absent: rash <Eber Newby - Last Filed: 01/22/21 17:18> Course Vital Signs 01/22/21 01/22/21 01/22/21 14:05 16:36 17:59 Temperature Pulse Rate 95 91 73 Respiratory 18 16 18 Rate Blood Pressure 137/103 148/98 150/79 O2 Sat by Pulse 100 99 96 Oximetry 01/22/21 18:11 Temperature 98.0 F Pulse Rate 73 Respiratory 18 Rate Blood Pressure 150/79 O2 Sat by Pulse 96 Oximetry Medical Decision Making - Lab Data Result diagrams: 01/22/21 14:56 01/22/21 14:56 <Eber Newby - Last Filed: 01/22/21 17:18> - Lab Data Result diagrams: 01/22/21 14:56 01/22/21 14:56 <Tanya Marshall - Last Filed: 01/25/21 00:33> - Medical Decision Making 35-year-old presented for a seizure. This is new onset seizure. Patient CT is unremarkable labs were reviewed. Patient does have multiple drugs on board she states she has some recent medication changes. Patient is instructed that she may not drive for at least 6 months and has to be cleared by neurology. She'll follow-up with the seizure clinic and return for any worsening change in symptoms. (Eber Newby) I was available for consultation in the emergency department. The history and physical exam were done by the midlevel provider. I was consulted for this patients care. I reviewed the case with the midlevel provider and based on their presentation of the patient, I agree with the assessment, medical decision making and plan of care as documented. Chart was dictated using Verious dictation software. Attempts were made to correct any dictation errors however some typographical errors may persist. (Tanya Marshall) - Lab Data Lab Results 01/22/21 01/22/21 01/22/21 Range/Units 14:56 14:56 14:56 WBC 6.6 (3.8-10.6) k/uL RBC 4.32 (3.80-5.40) m/uL Hgb 13.2 (11.4-16.0) gm/dL Hct 38.5 (34.0-46.0) % MCV 89.1 (80.0-100.0) fL MCH 30.7 (25.0-35.0) pg MCHC 34.4 (31.0-37.0) g/dL RDW 12.6 (11.5-15.5) % Plt Count 146 L (150-450) k/uL MPV 11.5 Neutrophils % 80 % Lymphocytes % 14 % Monocytes % 4 % Eosinophils % 1 % Basophils % 0 % Neutrophils # 5.2 (1.3-7.7) k/uL Lymphocytes # 0.9 L (1.0-4.8) k/uL Monocytes # 0.2 (0-1.0) k/uL Eosinophils # 0.0 (0-0.7) k/uL Basophils # 0.0 (0-0.2) k/uL Manual Slide Review Performed Large Platelets Present RBC Morphology Normal Sodium 139 (137-145) mmol/L Potassium 4.0 (3.5-5.1) mmol/L Chloride 108 H (98-107) mmol/L Carbon Dioxide 24 (22-30) mmol/L Anion Gap 7 mmol/L BUN 8 (7-17) mg/dL Creatinine 0.52 (0.52-1.04) mg/dL Est GFR (CKD-EPI)AfAm >90 (>60 ml/min/1.73 sqM) Est GFR (CKD-EPI)NonAf >90 (>60 ml/min/1.73 sqM) Glucose 121 H (74-99) mg/dL Calcium 9.7 (8.4-10.2) mg/dL Magnesium 2.2 (1.6-2.3) mg/dL Total Bilirubin 0.4 (0.2-1.3) mg/dL AST 27 (14-36) U/L ALT 28 (4-34) U/L Alkaline Phosphatase 88 (38-126) U/L Total Protein 7.2 (6.3-8.2) g/dL Albumin 4.2 (3.5-5.0) g/dL Urine Opiates Screen Detected H (NotDetected) Ur Oxycodone Screen Not Detected (NotDetected) Urine Methadone Screen Not Detected (NotDetected) Ur Propoxyphene Screen Not Detected (NotDetected) Ur Barbiturates Screen Detected H (NotDetected) U Tricyclic Antidepress Not Detected (NotDetected) Ur Phencyclidine Scrn Not Detected (NotDetected) Ur Amphetamines Screen Detected H (NotDetected) U Methamphetamines Scrn Not Detected (NotDetected) U Benzodiazepines Scrn Detected H (NotDetected) Urine Cocaine Screen Not Detected (NotDetected) U Marijuana (THC) Screen Detected H (NotDetected) Serum Alcohol <10 mg/dL Disposition Is patient prescribed a controlled substance at d/c from ED?: No Time of Disposition: 17:19 <Eber Newby - Last Filed: 01/22/21 17:18> <Tanya Marshall - Last Filed: 01/25/21 00:33> Clinical Impression: New onset seizure Disposition: HOME SELF-CARE Condition: Stable Instructions (If sedation given, give patient instructions): Seizure/Epilepsy Discharge Instructions & Follow-Up Additional Instructions: Please return to the Emergency Department if symptoms worsen or any other concerns. You may not drive until cleared by neurology Referrals: None,Stated [Primary Care Provider] - 1-2 days Hank Calvin MD [STAFF PHYSICIAN] - 1-2 days
[2021-01-22 15:21] LABS: ALT 28 U/L (4-34); AST 27 U/L (14-36); African American GFR (CKD) >90 (>60 ml/min/1.73 sqM); Albumin 4.2 g/dL (3.5-5.0); Alcohol <10 mg/dL; Alkaline Phosphatase 88 U/L (38-126); Anion Gap 7 mmol/L; Blood Urea Nitrogen 8 mg/dL (7-17); Calcium 9.7 mg/dL (8.4-10.2); Carbon Dioxide 24 mmol/L (22-30); Chloride 108 mmol/L (98-107); Glucose 121 mg/dL (74-99); Magnesium 2.2 mg/dL (1.6-2.3); Non-African American GFR(CKD) >90 (>60 ml/min/1.73 sqM); Sodium 139 mmol/L (137-145); Total Bilirubin 0.4 mg/dL (0.2-1.3); Total Protein 7.2 g/dL (6.3-8.2)
--- NOTE | 2021-01-22 15:48 | CT ---
EXAMINATION TYPE: CT brain wo con DATE OF EXAM: 01/22/2021 COMPARISON: CT brain 12/09/2018 HISTORY: New-onset seizure activity. CT DLP: 1129.4 mGycm. Automated Exposure Control for Dose Reduction was Utilized. TECHNIQUE: CT scan of the head is performed without contrast. FINDINGS: There is no acute intracranial hemorrhage, mass effect, or midline shift identified. The ventricles and sulci are within normal limits in size. The globes are intact and the visualized sin uses are clear. IMPRESSION: No acute intracranial hemorrhage, mass effect, or midline shift is seen.
[2021-01-22 16:36] LABS: Basophils % (A) 0 %; Eosinophils % (A) 1 %; HCT 38.5 % (34.0-46.0); HGB 13.2 gm/dL (11.4-16.0); Lymphocytes # (A) 0.9 k/uL (1.0-4.8); Lymphocytes % (A) 14 %; MCH 30.7 pg (25.0-35.0); MCHC 34.4 g/dL (31.0-37.0); MCV 89.1 fL (80.0-100.0); Mean Platelet Volume 11.5; Monocytes # (A) 0.2 k/uL (0-1.0); Monocytes % (A) 4 %; Neutrophils # (A) 5.2 k/uL (1.3-7.7); Neutrophils % (A) 80 %; Platelet Count 146 k/uL (150-450); RBC 4.32 m/uL (3.80-5.40); RDW 12.6 % (11.5-15.5); WBC 6.6 k/uL (3.8-10.6)
[2021-01-22 16:58] LABS: Amphetamine Screen,Urine Detected (NotDetected); Barbiturate Screen,Urine Detected (NotDetected); Benzodiazepines Screen,Urine Detected (NotDetected); Cocaine Screen,Urine Not Detected (NotDetected); Methadone Screen, Urine Not Detected (NotDetected); Opiate Screen,Urine Detected (NotDetected); Oxycodone Screen, Urine Not Detected (NotDetected); Phencyclidine Screen,Urine Not Detected (NotDetected); Tricyclic Antidepressant,Urine Not Detected (NotDetected); Urn Cannabinoid Scrn Detected (NotDetected)
[2021-01-22 17:23] LABS: Large Platelets Present
[2021-01-22 18:01] VITALS: BP 150/79; PULSE 73; RESP 18
[2021-01-22 18:12] VITALS: TEMP 98
== END 2021-01-22 18:12 | disposition home or self-care (01) ==
LOC: EC 14:01
DX: R56.9 Unspecified convulsions (principal); F17.290 Nicotine dependence, other tobacco product, uncomplicated
CPT/HCPCS: 36415; 93005; 80053; 83735; 85025; 80306; 70450; 99285; G0480; 80320

== ENCOUNTER 2021-05-11 21:06 | Inpatient (IN) | payer MEDICAID, OTHER ==
[2021-05-11] MEDS ORDERED: diphenhydrAMINE 50 MG/ML 1 ML VIAL IM STA (21:43)
[2021-05-11] MEDS ORDERED: LORazepam 2 MG/ML INJ IM STA (21:43)
[2021-05-11] MEDS ORDERED: ZIPRASIDONE 20 MG VIAL IM STA (21:47)
--- NOTE | 2021-05-11 21:49 | ED ---
Psych HPI - General Chief Complaint: Psychiatric Symptoms Stated Complaint: Mental Health Time Seen by Provider: 05/11/21 21:39 Source: patient, police, EMS, RN notes reviewed, old records reviewed Mode of arrival: EMS Limitations: no limitations - History of Present Illness Initial Comments: This is a 35-year-old female today presenting for psychiatric illness. Patient is very agitated belligerent. History unable to be obtained at this time. Patient agitated intoxicated brought in by PD. Patient attempted suicide by cutting her wrists. Patient allegedly suicide. Patient has lost all children to CPS MD Complaint: suicidal ideation, feels depressed, altered mental status -: unknown Associated Psychiatric Symptoms: depression, suicidal ideation History of same: Yes Quality: constant, intermittent Worsens With: none Context: recent alcohol abuse, significant life stressor Treatments Prior to Arrival: none If Self Harm: admits thoughts of self harm, has plan, has acted on plan (Cut wrists) - Related Data Previous Rx's Medication Instructions Recorded Gabapentin [Neurontin] 200 mg PO TID 30 Days #60 cap 04/23/21 LORazepam [Ativan] 0.5 mg PO BID 30 Days #60 tab 04/23/21 QUEtiapine [SEROquel] 100 mg PO HS 30 Days #30 tab 04/23/21 Sertraline [Zoloft] 50 mg PO DAILY 30 Days #30 tab 04/23/21 Allergies Allergy/AdvReac Type Severity Reaction Status Date / Time No Known Allergies Allergy Verified 05/11/21 21:34 Review of Systems ROS Statement: Those systems with pertinent positive or pertinent negative responses have been documented in the HPI. ROS Other: All systems not noted in ROS Statement are negative. Past Medical History Past Medical History: No Reported History, Seizure Disorder, Supraventricular Tachycardia (SVT) Additional Past Medical History / Comment(s): 01/25/21 seizure, polysubstance abuse, past metabolic encephalopathy 2ndary to drug overdose, neuropathy b ilateral hands/feet/legs, chronic thoracic/low back pain with bilateral sciatica, DDD, migraines, SVT with ablation, UTIs, hemorrhoids. History of Any Multi-Drug Resistant Organisms: None Reported Past Surgical History: Section, Ear Surgery, Uterine Ablation Additional Past Surgical History / Comment(s): cardiac ablation for SVT, C- Sections x 3, D&C, laparoscopy for ovanian cyst, L ear keloid removed. Past Anesthesia/Blood Transfusion Reactions: No Reported Reaction Past Psychological History: Anxiety, Depression Smoking Status: Former smoker, Vaper Past Alcohol Use History: Occasional Past Drug Use History: Marijuana, Methamphetamine, Opiates - Past Family History Mother Family Medical History: Hypertension Additional Family Medical History / Comment(s): Mother is . Father Family Medical History: Diabetes Mellitus Additional Family Medical History / Comment(s): Pt states father is a "drug addict." General Exam Limitations: altered mental status General appearance: alert, in no apparent distress, anxious Head exam: Present: atraumatic, normocephalic, normal inspection Eye exam: Present: normal appearance, PERRL, EOMI. Absent: scleral icterus, conjunctival injection, periorbital swelling ENT exam: Present: normal exam, mucous membranes moist Neck exam: Present: normal inspection. Absent: tenderness, meningismus, lymphadenopathy Respiratory exam: Present: normal lung sounds bilaterally. Absent: respiratory distress, wheezes, rales, rhonchi, stridor Cardiovascular Exam: Present: normal rhythm, tachycardia, normal heart sounds. Absent: systolic murmur, diastolic murmur, rubs, gallop, clicks GI/Abdominal exam: Present: soft, normal bowel sounds. Absent: distended, tenderness, guarding, rebound, rigid Extremities exam: Present: normal inspection, full ROM, normal capillary refill. Absent: tenderness, pedal edema, joint swelling, calf tenderness Back exam: Present: normal inspection Neurological exam: Present: alert, oriented X3, CN II-XII intact Psychiatric exam: Present: normal affect, normal mood Skin exam: Present: warm, dry, intact, normal color. Absent: rash Course Vital Signs 05/11/21 21:20 Temperature 98.6 F Pulse Rate 113 H Respiratory 24 Rate Blood Pressure 141/67 O2 Sat by Pulse 100 Oximetry - Reevaluation(s) Reevaluation #1: 05/12/21 01:28 Medical record is reviewed Reevaluation #2: 05/12/21 01:28 medically clear for psychiatric evaluation Procedures - Laceration Laceration #1 Consent Obtained: verbal consent Indication: laceration Site: upper extremity (Left wrist) Description: linear Depth: simple, single layer Pre-repair: wound explored, irrigated extensively Type of Sutures: other (Leonard pulido) Size of Sutures: other (Leonard pulido) Technique: simple, interrupted - Restraint - Face to Face Restraint Occurrence 1 Patient's Immediate Situation: Endangers self safety, Endangers others' safety, Endangers staff safety, Violent behavior Patient's Reaction to the Intervention: Uncooperative, Angry, Belligerent, Anxi ous Patient's Medical & Behavioral Condition: Anxious, Agitated Need to Continue or Terminate Restraint or Seclusion: Continue Face to Face Eval of Restraint Date: 05/11/21 Face to Face Eval of Restraint Time: 21:31 Medical Decision Making - Medical Decision Making 35 female seen and evaluated psychiatry, patient will be admitted for psychiatric evaluation and treatment Disposition Clinical Impression: Depression, Suicide attempt, Alcohol intoxication Disposition: TRANSFER TO PSYCH HOSP/UNIT Condition: Fair Is patient prescribed a controlled substance at d/c from ED?: No Referrals: Santosh Martinez MD [Primary Care Provider] - 1-2 days
[2021-05-12] MEDS ORDERED: MAG HYDROX/AL HYDROX/SIMETH 30 ML CUP PO PRN (04:58)
[2021-05-12] MEDS ORDERED: MAGNESIUM HYDROXIDE 2,400 MG/10 ML CUP PO PRN (04:58)
[2021-05-12] MEDS ORDERED: HALOPERIDOL LACTATE 5 MG/ML 1 ML VIAL IM PRN (04:58)
[2021-05-12] MEDS ORDERED: LORazepam 2 MG/ML INJ IM PRN (05:04)
[2021-05-12] MEDS ORDERED: haloperidoL 5 MG TAB PO PRN (05:05)
[2021-05-12 06:41] LABS: Appearance,Urine Cloudy (Clear); Bacteria,Urine Rare /hpf; Bilirubin,Urine Negative (Negative); Blood,Urine Negative (Negative); Color,Urine Yellow; Glucose,Urine (UA) Negative (Negative); Ketones,Urine Negative (Negative); Leukocyte Esterase,Urine Negative (Negative); Mucus,Urine Few /hpf; Nitrite,Urine Negative (Negative); PH, Urine 6.5 (5.0-8.0); Protein,Urine Negative (Negative); RBC,Urine 1 /hpf (0-5); Specific Gravity,Urine 1.012 (1.001-1.035); Squamous Epithelial Cell,Urine 3 /hpf (0-4); Urobilinogen,Urine <2.0 mg/dL (<2.0); WBC,Urine 1 /hpf (0-5)
[2021-05-12] MEDS: GABAPENTIN 100 MG CAP PO SCH ×3 (08:33→23:35)
[2021-05-12] MEDS: ACETAMINOPHEN TAB 325 MG TAB PO PRN ×2 (08:33→17:38)
[2021-05-12] MEDS ORDERED: SERTRALINE 50 MG TAB PO SCH (09:00)
[2021-05-12 11:03] LABS: Urine Alcohol Positive (Negative); Urine Barbiturate Positive (Negative); Urine Cocaine Negative (Negative); Urine Methadone Negative (Negative); Urine Opiates Negative (Negative); Urine Phencyclidine Negative (Negative)
[2021-05-12] MEDS: LORazepam 1 MG TAB PO PRN (17:38)
[2021-05-12] MEDS: MIRTAZAPINE 15 MG TAB PO SCH (20:45)
[2021-05-12] MEDS: AMITRIPTYLINE HCL 25 MG TAB PO SCH (20:45)
[2021-05-12] MEDS: busPIRone HCl 10 MG TAB PO SCH (20:45)
[2021-05-12] MEDS ORDERED: QUEtiapine 100 MG TAB PO SCH (21:00)
--- NOTE | 2021-05-12 22:17 | P.CONS ---
History of Present Illness - History of Present Illness This is a pleasant 55 years old female with past medical history of seizure d isorders and supraventricular tachycardia, currently on seizure medication Ativan 0.5 twice a day, gabapentin 200 mg 3 times a day and Lyrica. Presents because of STRESS in her life with depression and suicidal attempts with multiple scratching wound in the both wrist area. She was admitted to the mental health unit at medical consult requested for routine medical management. Patient is fully awake oriented, denies any physical complaints. No chest pain or dyspnea, no change in urine or bowel habits. No abdominal pain, no headache or weakness or numbness or dizziness. No fever. She denies smoking, alcohol or illicit drugs however because of a lot of stress in her life she was drinking recurrent whiskey last 1-2 days prior to admission which is unusual for her And hemodynamically stable. Urine drug screen was positive for barbiturates, benzodiazepines, cannabinoids and urine alcohol level. Wu Ly not detected. Urinalysis is negative Review of Systems Review of systems CONSTITUTIONAL: No fever, no malaise, no fatigue. HEENT: No recent visual problems or hearing problems. Denied any sore throat. CARDIOVASCULAR: No orthopnea, PND, no palpitations, no syncope. PULMONARY: No shortness of breath, no cough, no hemoptysis. GASTROINTESTINAL: No diarrhea, no nausea, no vomiting, no abdominal pain. Normoactive bowel sounds. NEUROLOGICAL: No headaches, no weakness, no numbness. HEMATOLOGICAL: Denies any bleeding or petechiae. GENITOURINARY: Denies any burning micturition, frequency, or urgency. MUSCULOSKELETAL/RHEUMATOLOGICAL: Denies any joint pain, swelling, or any muscle pain. ENDOCRINE: Denies any polyuria or polydipsia. Past Medical History Past Medical History: No Reported History, Seizure Disorder, Supraventricular Tachycardia (SVT) Additional Past Medical History / Comment(s): 01/25/21 seizure, polysubstance abuse, past metabolic encephalopathy 2ndary to drug overdose, neuropathy bilateral hands/feet/legs, chronic thoracic/low back pain with bilateral sciatica, DDD, migraines, SVT with ablation, UTIs, hemorrhoids. History of Any Multi-Drug Resistant Organisms: None Reported Past Surgical History: Section, Ear Surgery, Uterine Ablation Additional Past Surgical History / Comment(s): cardiac ablation for SVT, C- Sections x 3, D&C, laparoscopy for ovanian cyst, L ear keloid removed. Past Anesthesia/Blood Transfusion Reactions: No Reported Reaction Past Psychological History: Anxiety, Depression Additional Psychological History / Comment(s): Pt currently resides alone. Her fiancee unexpectedly comitted suicide 11/2020. Pt states she is seen at [facility]. Smoking Status: Former smoker, Vaper Past Alcohol Use History: Occasional Additional Past Alcohol Use History / Comment(s): Pt started smoking as a teen and quit cigarettes in 2018 but is now vaping. She states she uses alcohol occasionally. Past Drug Use History: Marijuana, Methamphetamine, Opiates Additional Drug Use History / Comment(s): Polysubstance abuse. - Past Family History Mother Family Medical History: Hypertension Additional Family Medical History / Comment(s): Mother is . Father Family Medical History: Diabetes Mellitus Additional Family Medical History / Comment(s): Pt states father is a "drug addict." Medications and Allergies Home Medications Medication Instructions Recorded Confirmed Type Gabapentin [Neurontin] 200 mg PO TID 30 Days #60 cap 04/23/21 05/12/21 Rx LORazepam [Ativan] 0.5 mg PO BID 30 Days #60 tab 04/23/21 05/12/21 Rx QUEtiapine [SEROquel] 100 mg PO HS 30 Days #30 tab 04/23/21 05/12/21 Rx Sertraline [Zoloft] 50 mg PO DAILY 30 Days #30 tab 04/23/21 05/12/21 Rx Pregabalin [Lyrica] 50 mg PO TID 05/12/21 05/12/21 History oxyCODONE-APAP 7.5-325MG [Percocet 1 tab PO BID PRN 05/12/21 05/12/21 History 7.5-325 mg] Allergies Allergy/AdvReac Type Severity Reaction Status Date / Time No Known Allergies Allergy Verified 05/12/21 11:17 Physical Exam Vitals: Vital Signs Temp Pulse Pulse Resp BP BP Pulse Ox 05/12/21 06:35 97.6 F 86 15 129/62 100 05/12/21 05:30 79 16 100/56 98 05/12/21 01:00 89 16 112/69 97 05/11/21 21:20 98.6 F 113 H 24 141/67 100 Intake and Output 05/11/21 05/12/21 05/12/21 22:59 06:59 14:59 Other: Weight 104.326 kg GENERAL: The patient is alert and oriented x3, not in any acute distress. Obese HEENT: Pupils are round and equally reacting to light. EOMI. No scleral icterus. No conjunctival pallor. Normocephalic, atraumatic. No pharyngeal erythema. No thyromegaly. CARDIOVASCULAR: S1 and S2 present. No murmurs, rubs, or gallops. PULMONARY: Chest is clear to auscultation, no wheezing or crackles. ABDOMEN: Soft, nontender, nondistended, normoactive bowel sounds. No palpable organomegaly. MUSCULOSKELETAL: No joint swelling or deformity. -EXTREMITIES: No cyanosis, clubbing, or pedal edema. Multiple superficial linear wounds the ventral surface of both wrists. No open wounds or abnormal discharge or cellulitis NEUROLOGICAL: Gross neurological examination did not reveal any focal deficits. SKIN: No rashes. no petechiae. Results Labs: Abnormal Lab Results - Last 24 Hours (Table) 05/12/21 05/12/21 Range/Units 06:00 06:00 Urine Appearance Cloudy H (Clear) Urine Bacteria Rare H (None) /hpf Urine Mucus Few H (None) /hpf Urine Barbiturates Positive A (Negative) U Benzodiazepines Scrn Positive A (Negative) U Cannabinoids Screen Positive A (Negative) Urine Alcohol Positive A (Negative) Assessment and Plan Assessment: -Depression with suicidal attempt with multiple superficial/and once the ventral area of both wrist, there is no open wounds and local care is provided already, management as per primary psychiatric team -Binge alcohol drinking, patient is counseled -History of seizure, continue with Ativan and gabapentin -Morbid obesity with BMI of 38.3 -Substance abuse including [place], patient is counseled -Chronic back pain -Peripheral Neuropathy in both feet and hands, continue with Lyrica and gabapentin and as per primary team -History of migraine, not active tissue -Degenerative disc disease, not an active issue Patient was instructed to follow up with PCP in one week after discharge Thank you for consulting us, we will see the patient on as needed basis.
[2021-05-13] MEDS: GABAPENTIN 100 MG CAP PO SCH ×3 (08:45→21:06)
[2021-05-13] MEDS: SERTRALINE 50 MG TAB PO SCH (08:45)
[2021-05-13] MEDS: busPIRone HCl 10 MG TAB PO SCH ×2 (08:46→20:32)
[2021-05-13] MEDS: ACETAMINOPHEN TAB 325 MG TAB PO PRN ×3 (08:47→20:32)
[2021-05-13] MEDS: LORazepam 1 MG TAB PO PRN ×3 (08:47→21:06)
[2021-05-13 09:21] LABS: Basophils % (A) 0 %; Eosinophils # (A) 0.1 k/uL (0-0.7); Eosinophils % (A) 1 %; HCT 39.2 % (34.0-46.0); HGB 12.9 gm/dL (11.4-16.0); Lymphocytes # (A) 1.7 k/uL (1.0-4.8); Lymphocytes % (A) 30 %; MCHC 32.9 g/dL (31.0-37.0); MCV 94.3 fL (80.0-100.0); Mean Platelet Volume 10.3; Monocytes # (A) 0.3 k/uL (0-1.0); Monocytes % (A) 5 %; Neutrophils # (A) 3.6 k/uL (1.3-7.7); Neutrophils % (A) 63 %; Platelet Count 157 k/uL (150-450); RBC 4.15 m/uL (3.80-5.40); RDW 13.1 % (11.5-15.5); WBC 5.7 k/uL (3.8-10.6)
[2021-05-13 09:33] LABS: ALT 16 U/L (4-34); AST 23 U/L (14-36); African American GFR (CKD) >90 (>60 ml/min/1.73 sqM); Albumin 3.9 g/dL (3.5-5.0); Alkaline Phosphatase 79 U/L (38-126); Anion Gap 8 mmol/L; Blood Urea Nitrogen 9 mg/dL (7-17); Calcium 8.8 mg/dL (8.4-10.2); Carbon Dioxide 24 mmol/L (22-30); Chloride 107 mmol/L (98-107); Glucose 99 mg/dL (74-99); Non-African American GFR(CKD) >90 (>60 ml/min/1.73 sqM); Potassium 4.1 mmol/L (3.5-5.1); Sodium 139 mmol/L (137-145); Total Bilirubin 0.5 mg/dL (0.2-1.3); Total Protein 6.7 g/dL (6.3-8.2)
[2021-05-13] MEDS ORDERED: LORazepam 1 MG TAB PO PRN ×2 (16:44→16:47)
--- NOTE | 2021-05-13 18:25 | P.HP ---
Psychiatric H&P - . H&P Date: 05/12/21 History & Physical: Allergies Allergy/AdvReac Type Severity Reaction Status Date / Time No Known Allergies Allergy Verified 05/12/21 11:17 Vital Signs Temp 97.7 F 05/13/21 06:39 Pulse 70 05/13/21 06:39 Resp 14 05/13/21 06:39 BP 136/63 05/13/21 06:39 Pulse Ox 100 05/12/21 06:35 Intake & Output 05/12/21 05/13/21 05/13/21 17:59 06:59 18:59 Weight 108.664 kg Laboratory Last Values WBC 5.7 k/uL (3.8-10.6) 05/13/21 07:31 RBC 4.15 m/uL (3.80-5.40) 05/13/21 07:31 Hgb 12.9 gm/dL (11.4-16.0) 05/13/21 07:31 Hct 39.2 % (34.0-46.0) 05/13/21 07:31 MCV 94.3 fL (80.0-100.0) 05/13/21 07:31 MCH 31.0 pg (25.0-35.0) 05/13/21 07:31 MCHC 32.9 g/dL (31.0-37.0) 05/13/21 07:31 RDW 13.1 % (11.5-15.5) 05/13/21 07:31 Plt Count 157 k/uL (150-450) 05/13/21 07:31 MPV 10.3 05/13/21 07:31 Neutrophils % 63 % 05/13/21 07:31 Lymphocytes % 30 % 05/13/21 07:31 Monocytes % 5 % 05/13/21 07:31 Eosinophils % 1 % 05/13/21 07:31 Basophils % 0 % 05/13/21 07:31 Neutrophils # 3.6 k/uL (1.3-7.7) 05/13/21 07:31 Lymphocytes # 1.7 k/uL (1.0-4.8) 05/13/21 07:31 Monocytes # 0.3 k/uL (0-1.0) 05/13/21 07:31 Eosinophils # 0.1 k/uL (0-0.7) 05/13/21 07:31 Basophils # 0.0 k/uL (0-0.2) 05/13/21 07:31 Sodium 139 mmol/L (137-145) 05/13/21 07:31 Potassium 4.1 mmol/L (3.5-5.1) 05/13/21 07:31 Chloride 107 mmol/L (98-107) 05/13/21 07:31 Carbon Dioxide 24 mmol/L (22-30) 05/13/21 07:31 Anion Gap 8 mmol/L 05/13/21 07:31 BUN 9 mg/dL (7-17) 05/13/21 07:31 Creatinine 0.61 mg/dL (0.52-1.04) 05/13/21 07:31 Est GFR (CKD-EPI)AfAm >90 (>60 ml/min/1.73 sqM) 05/13/21 07:31 Est GFR (CKD-EPI)NonAf >90 (>60 ml/min/1.73 sqM) 05/13/21 07:31 Glucose 99 mg/dL (74-99) 05/13/21 07:31 Calcium 8.8 mg/dL (8.4-10.2) 05/13/21 07:31 Total Bilirubin 0.5 mg/dL (0.2-1.3) 05/13/21 07:31 AST 23 U/L (14-36) 05/13/21 07:31 ALT 16 U/L (4-34) 05/13/21 07:31 Alkaline Phosphatase 79 U/L (38-126) 05/13/21 07:31 Total Protein 6.7 g/dL (6.3-8.2) 05/13/21 07:31 Albumin 3.9 g/dL (3.5-5.0) 05/13/21 07:31 Urine Color Yellow 05/12/21 06:00 Urine Appearance Cloudy (Clear) H 05/12/21 06:00 Urine pH 6.5 (5.0-8.0) 05/12/21 06:00 Ur Specific [place] 1.012 (1.001-1.035) 05/12/21 06:00 Urine Protein Negative (Negative) 05/12/21 06:00 Urine Glucose (UA) Negative (Negative) 05/12/21 06:00 Urine Ketones Negative (Negative) 05/12/21 06:00 Urine Blood Negative (Negative) 05/12/21 06:00 Urine Nitrite Negative (Negative) 05/12/21 06:00 Urine Bilirubin Negative (Negative) 05/12/21 06:00 Urine Urobilinogen <2.0 mg/dL (<2.0) 05/12/21 06:00 Ur Leukocyte Esterase Negative (Negative) 05/12/21 06:00 Urine RBC 1 /hpf (0-5) 05/12/21 06:00 Urine WBC 1 /hpf (0-5) 05/12/21 06:00 Ur Squamous Epith Cells 3 /hpf (0-4) 05/12/21 06:00 Urine Bacteria Rare /hpf (None) H 05/12/21 06:00 Urine Mucus Few /hpf (None) H 05/12/21 06:00 Urine HCG, Qual Not Detected (Not Detectd) 05/12/21 06:00 Urine Opiates Screen Negative (Negative) 05/12/21 06:00 Urine Methadone Screen Negative (Negative) 05/12/21 06:00 Ur Propoxyphene Screen Negative (Negative) 05/12/21 06:00 Urine Barbiturates Positive (Negative) A 05/12/21 06:00 Ur Phencyclidine Scrn Negative (Negative) 05/12/21 06:00 Ur Amphetamine Screen Negative (Negative) 05/12/21 06:00 U Benzodiazepines Scrn Positive (Negative) A 05/12/21 06:00 Urine Cocaine Screen Negative (Negative) 05/12/21 06:00 U Cannabinoids Screen Positive (Negative) A 05/12/21 06:00 Urine Alcohol Positive (Negative) A 05/12/21 06:00 Coronavirus (PCR) Not Detected (Not Detectd) 05/12/21 02:53 05/13/21 18:18 IDENTIFYING DATA: Patient is a 35-year-old homeless unemployed female who is admitted after suicide attempt HPI: States that she came to the hospital "intoxicated and slit wrists" states that she used a kitchen knife last night to slit her wrists. Denies current suicidal or homicidal thoughts. Denies hallucinations. Reports periods of depression with low energy feelings of guilt and low sleep and suicidal ideations. Has had 2 suicide attempts before. States that she drinks 1-2 times per week and her last drink was last night. She drank a few strong drinks with whiskey and 7-Up. Currently she reports no withdrawal symptoms. Her recent stressors include her fianc's , her mom's , and financial issues. States that she can go to her friends for support. States that her sister has attempted suicide, her cousin hung herself, and her grandmother shot herself. Denies current or past manic episodes. Denies hallucinations. PAST PSYCHIATRIC HISTORY: History of depression and anxiety. Has a counselor and a therapist but does not see a psychiatrist. Patient is currently on Zoloft 200 mg daily, Ativan 0.5 mg twice a day, Remeron 15 mg at bedtime, BuSpar 30 mg twice a day. States that she is compliant with these medications. Was recently admitted after an overdose and was discharged on Zoloft, Ativan, and gabapentin. States that these medications did not help. States that she has been on many antidepressants in the past including Lexapro, Prozac, Cymbalta. PMH: Per medical note ALLERGIES: as per EMR CHEMICAL DEPENDENCY HISTORY: as per HPI FAMILY PSYCHIATRIC/SUBSTANCE USE HISTORY: Mother used opioids, dad used crack, sister used heroin, family history of depression and anxiety and bipolar disorder SOCIAL HISTORY: Currently homeless and unemployed, has a CPS case with her children MENTAL STATUS EXAM: General Appearance: 35-year-old overweight female who appears older than her stated age, lying in bed with the sheet over her, healing scars seen on bilateral wrists, Behavior: Patient is seated without any agitated behavior. [] Speech: Patient's speech is [fluent and nonpressured.] Mood/Affect: Patient reports their mood is "sad", affect is congruent and constricted. Suicidality/Homicidality: Patient denies having any homicidal ideation intent or plan. [Denies any suicidal ideations intent or plan] Perceptions: Patient denies any visual hallucinations [and denies any auditory hallucinations] Though content/process: [There is no evidence of any delusional thought content and thought process is linear and goal-directed.] Memory and concentration: AOX3, grossly intact for the purposes of this session. Judgment and insight: [poor] STRENGTHS/WEAKNESSES: strength is that patient is has a support system. Weakness is that patient [has poor judgment INTELLECT: [average] IMPRESSIONS: Major depressive disorder PLAN: -Involuntary admission -Medications : Due to reported noneffectiveness off her current regimen, we will start by cross tapering her Zoloft to Elavil. Patient has not been on a TCA before. We will decrease Zoloft to 150 mg daily and start Elavil 25 mg daily at bedtime. Will discontinue Ativan. We'll continue Remeron 15 mg at bedtime and BuSpar 30 mg twice a day for now. -Ativan [and Haldol] PRN for agitation/aggression [-Patient was counselled on substance abuse and desired to cut back on use] -Patient was informed of the risks, benefits and side effects of the medication and patient verbally consented to taking the medications. Patient signed med consent form and was placed in chart. -Internal Medicine consult to perform medical evaluation and physical. -SW on board for discharge planning. Encourage patient to participate in groups to work on coping skills. [Will await deferral and court date.] []
--- NOTE | 2021-05-13 18:28 | P.PN ---
Progress Note - Text Progress Note Date: 05/13/21 Interval history: Patient was directable and agreeable to speak with chief underwriter. Reports withdrawal symptoms including cold sweats, anxiety, yawning, irritability, some tremors. Also reports low energy and poor sleep. At this time patient denies any suicidal or homicidal ideations intent or plan. Denies any Auditory or visual hallucinations. Patient denies any side effects from the medications and has been compliant with meds. She is requesting discharge tomorrow if she has a visit with her children. She was told that primary team would make a call on discharge, but was encouraged to stay in the hospital for psychiatric stabilization and medical management Mental status exam: General Appearance: [Patient appears to be stated age is alert, directable, and cooperative.] Behavior: [No agitated behavior. Patient is calm and directable] Speech: Patient's speech is fluent and nonpressured. Mood/Affect: Mood is improving mildly, affect is congruent and constricted. Suicidality/Homicidality: Patient denies having any suicidal or homicidal ideation intent or plan. Perceptions: Patient denies any auditory or visual hallucinations. Though content/process: [There is no evidence of any delusional thought content and thought process is linear and goal-directed.] Memory and concentration: AOX3, grossly intact for the purposes of this session Judgment and insight: poor Assessment/Plan: Continue with current diagnosis. Add CIWA protocol. Patient continues to meet criteria for inpatient psychiatric admission for symptom stabilization and safety.[Patient will be maintained on current psychotropic medication regimen.] Monitor for medication compliance and for any psychotropic medication side effects. Will continue to monitor ongoing response to treatment. Encouraged participation in milieu.
[2021-05-13] MEDS: MIRTAZAPINE 15 MG TAB PO SCH (20:32)
[2021-05-13] MEDS: AMITRIPTYLINE HCL 25 MG TAB PO SCH (20:32)
[2021-05-13] MEDS: THIAMINE 100 MG TAB PO SCH (20:32)
[2021-05-14 08:08] VITALS: RESP 16
[2021-05-14] MEDS: SERTRALINE 50 MG TAB PO SCH (08:08)
[2021-05-14] MEDS: busPIRone HCl 10 MG TAB PO SCH ×2 (08:08→20:37)
[2021-05-14] MEDS: THIAMINE 100 MG TAB PO SCH ×2 (08:08→16:01)
[2021-05-14] MEDS: GABAPENTIN 100 MG CAP PO SCH ×3 (08:09→21:13)
[2021-05-14] MEDS: ACETAMINOPHEN TAB 325 MG TAB PO PRN ×3 (08:10→20:38)
[2021-05-14] MEDS: LORazepam 1 MG TAB PO PRN ×2 (08:10→16:01)
--- NOTE | 2021-05-14 10:09 | P.PN ---
Subjective Progress Note Date: 05/14/21 Principal diagnosis: progress note She was seen today for review of her progress with the Nursing staff in charge. She was lying in the bed and was highly cooperative. She was reassured of the transition of care from her acute unit to the Rehab. She identified the series of stressors: child custody, unstable interpersonal relatiionship. She talked about her admission contextual issues including her substance use. She was compliant with her Rx and did not report any adverse events. She recalled how she harboured inpulsive suicidal ideation prior to her admission. she was complimented for her degree of preparedness for entering the 2nd stage of her extended treatment . O: Mental status Exam. lucid, coherent, with no clouded sensorium. no withdrawal tremor. She did not voice any somatic issues; no mannerisms or posturing. Affect; She was moderately anxious over custody issue. congruent with thought content Thought content and process : no obsession, no craving . no clearcut suicidal ideation or plan. No derailment or loosening of association perceptual : no hallucinations or delusions of guilt, slight guilty feelings over her impulsive act Cog: oriented x 3 spheres, improved insight and judgment A: Major depressive disorder, early treatment response. Alcohol use disorder , withdrawal phase uneventful Management:1. Reassess her Rx ; monitor for protracted withdrawal and worsening of depression 2. Explore engagment with after care. [facility] unit ready to accept pt. 3. Assess impulsivity and fluctuating mood symptoms 4. Criteria of inpatient stay; contineud to be applicable Objective - Vital Signs Vital signs: Vital Signs Temp 97.4 F L 05/14/21 08:06 Pulse 89 05/14/21 08:06 Resp 16 05/14/21 08:06 BP 133/83 05/14/21 08:06 Pulse Ox 98 05/14/21 08:06 Intake & Output 05/13/21 05/14/21 05/14/21 18:59 06:59 18:59 Weight 108.664 kg - Labs CBC & Chem 7: 05/13/21 07:31 05/13/21 07:31
[2021-05-14] MEDS: MIRTAZAPINE 15 MG TAB PO SCH (20:37)
[2021-05-14] MEDS: AMITRIPTYLINE HCL 25 MG TAB PO SCH (20:37)
[2021-05-15 06:46] VITALS: BP 137/78; PULSE 75; TEMP 98.2
[2021-05-15] MEDS: THIAMINE 100 MG TAB PO SCH (08:04)
[2021-05-15] MEDS: GABAPENTIN 100 MG CAP PO SCH (08:04)
[2021-05-15] MEDS: busPIRone HCl 10 MG TAB PO SCH (08:04)
[2021-05-15] MEDS: ACETAMINOPHEN TAB 325 MG TAB PO PRN (08:05)
[2021-05-15] MEDS: SERTRALINE 50 MG TAB PO SCH (08:05)
[2021-05-15] MEDS: LORazepam 1 MG TAB PO PRN (08:05)
--- NOTE | 2021-05-15 12:39 | P.DS ---
Providers Date of admission: 05/12/21 04:43 Expected date of discharge: 05/15/21 Attending physician: Ryan Reeves MD discharge summary by Jabier ELDER MD [facility] psychiatrist Admission context : She was readmitted to [facility] after a brief stay in the community. She had had significant history of substance use : alcohol and cannabis use disorder whcih she appeared to self-medicate her mood : her depresson whcih has fluctuated considerably due to her mounting stressors; eg custody of her children. Interpersonal relationship and support system has been highly unstable for the past 6 mnonths She was admitted over the weekend in an intoxicated state associated with suicidal attempts x 2 in her history. She di dnot harbour chonric suicidal ideation which has resurfaced again whever she was relaping on her substances. She indicated during her previous admission that she would sign herself to a [facility] treatment center for her substance use, but she did not follow through with her plan. THe LANEY note indicated she consumed whiskey and overdosed. She experienced mounting anxiety and depression and was tried on augmentation strategy of SNRI: mietrazepine , SSRI. 150 mg with atypical : seroquel She was also on Buspar at 60 mg po od. She was reassessed by me on May 14 at that time she stated she was ready to be discharged. She attributed her relapse to her poor coping style She was eager to reconnenct with [facility] for her substance use. 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 She did not endorse any suicidal ideaton or attempt during her brief stay SHe did not harbor any psychotic symptoms Discharge appointment: She indicated she has an appointment with her neurologist for her history of seizure disorder on 15 May and wanted to be discharged earlier. Medication profile was reviewed and Rxs were given Discharge diagnosis: major depressive disorder with anxious distress comorbid seizure disorder SHe went through alcohol withdrawl uneventfully with thiamine replacement polysubtance use disorder; alcohol cannabis, Her urint showe positive for cannabis and benzo, even though se denied she misused BNZ or Cannabis. Discharge follow uP she would go to [facility] treatment center States that she came to the hospital "intoxicated and slit wrists" states that she used a kitchen knife last night to slit her wrists. Denies current suicidal or homicidal thoughts. Denies hallucinations. Reports periods of depression with low energy feelings of guilt and low sleep and suicidal ideations. Has had 2 suicide attempts before. States that she drinks 1-2 times per week and her last drink was last night. She drank a few strong drinks with whiskey and 7-Up. Currently she reports no withdrawal symptoms. Her recent stressors include her fianc's , her mom's , and financial issues. States that she can go to her friends for support. States that her sister has attempted suicide, her cousin hung herself, and her grandmother shot herself. Denies current or past manic episodes. Denies hallucinations. PAST PSYCHIATRIC HISTORY: History of depression and anxiety. Has a counselor and a therapist but does not see a psychiatrist. Patient is currently on Zoloft 200 mg daily, Ativan 0.5 mg twice a day, Remeron 15 mg at bedtime, BuSpar 30 mg twice a day. States that she is compliant with these medications. Was recently admitted after an overdose and was discharged on Zoloft, Ativan, and gabapentin. States that these medications did not help. States that she has been on many antidepressants in the past including Lexapro, Prozac, Cymbalta. Consults: 05/12/21 04:58 Consult Physician Routine Consulting Provider: Peggy Dye Consult Reason/Comments: For H&P for medical follow up Do you want consulting provider notified?: Yes, Notify in am Primary care physician: Santosh Martinez Patient Condition at Discharge: Fair Plan - Discharge Summary Discharge Rx Participant: Yes New Discharge Prescriptions: New Mirtazapine [Remeron] 15 mg PO HS 30 Days #30 tab Sertraline [Zoloft] 150 mg PO DAILY 30 Days #30 tab busPIRone HCl [Buspar] 30 mg PO BID 30 Days #180 tab Continue Gabapentin [Neurontin] 200 mg PO TID 30 Days #60 cap QUEtiapine [SEROquel] 100 mg PO HS 30 Days #30 tab Discontinued oxyCODONE-APAP 7.5-325MG [Percocet 7.5-325 mg] 1 tab PO BID PRN PRN Reason: Pain Sertraline [Zoloft] 50 mg PO DAILY 30 Days #30 tab No Action LORazepam [Ativan] 0.5 mg PO BID 30 Days #60 tab Pregabalin [Lyrica] 50 mg PO TID Discharge Medication List LORazepam [Ativan] 0.5 mg PO BID 30 Days #60 tab 04/23/21 [Rx] Pregabalin [Lyrica] 50 mg PO TID 05/12/21 [History] Gabapentin [Neurontin] 200 mg PO TID 30 Days #60 cap 05/15/21 [Rx] Mirtazapine [Remeron] 15 mg PO HS 30 Days #30 tab 05/15/21 [Rx] QUEtiapine [SEROquel] 100 mg PO HS 30 Days #30 tab 05/15/21 [Rx] Sertraline [Zoloft] 150 mg PO DAILY 30 Days #30 tab 05/15/21 [Rx] busPIRone HCl [Buspar] 30 mg PO BID 30 Days #180 tab 05/15/21 [Rx] Follow up Appointment(s)/Referral(s): [facility] [Outside] - 05/17/21 12:00 pm (Ofelia Tim) Santosh Martinez MD [Primary Care Provider] - 1-2 days Patient Instructions/Handouts: Depression (DC), Anxiety (GEN) Activity/Diet/Wound Care/Special Instructions: Activity and diet as tolerated. Avoid the use of street drugs and alcohol. Take all medications as prescribed. When you are in need of refills on your medications please contact your medical provider and/or outpatient psychiatrist to have this done. Please go to scheduled outpatient appointment for aftercare treatment. If symptoms return or become worse, call the crisis line at and/or go to the nearest emergency room for evaluation
[2021-05-15] MEDS ORDERED: LORazepam 1 MG TAB PO PRN (12:51)
== END 2021-05-15 13:43 | disposition home or self-care (01) | DRG 881 ==
LOC: EC 21:06 → 3MHU 05-12 04:43
PROVIDERS: ADMIT Psychiatry & Neurology Psychiatry; ATTEND Psychiatry & Neurology Psychiatry
PROC: 0HQEXZZ Repair Left Lower Arm Skin, External Approach (ICD-10-PCS; principal; 2021-05-11)
DX: F32.9 Major depressive disorder, single episode, unspecified (principal); F10.239 Alcohol dependence with withdrawal, unspecified; G40.909 Epilepsy, unspecified, not intractable, without status epilepticus; E66.01 Morbid (severe) obesity due to excess calories; F10.229 Alcohol dependence with intoxication, unspecified; X78.1XXA Intentional self-harm by knife, initial encounter; Z20.822 Contact with and (suspected) exposure to COVID-19; S61.512A Laceration without foreign body of left wrist, initial encounter; S61.511A Laceration without foreign body of right wrist, initial encounter; F41.9 Anxiety disorder, unspecified; Z68.39 Body mass index [BMI] 39.0-39.9, adult; F12.90 Cannabis use, unspecified, uncomplicated; F13.90 Sedative, hypnotic, or anxiolytic use, unspecified, uncomplicated; F11.90 Opioid use, unspecified, uncomplicated; F15.90 Other stimulant use, unspecified, uncomplicated; G62.9 Polyneuropathy, unspecified; G89.29 Other chronic pain; M54.42 Lumbago with sciatica, left side; M54.41 Lumbago with sciatica, right side; K64.9 Unspecified hemorrhoids; Z87.891 Personal history of nicotine dependence; Z71.6 Tobacco abuse counseling; Z79.899 Other long term (current) drug therapy; Z91.51 Personal history of suicidal behavior; Z59.00 Homelessness unspecified; Z56.0 Unemployment, unspecified; Z86.69 Personal history of other diseases of the nervous system and sense organs; Z86.79 Personal history of other diseases of the circulatory system; Z87.2 Personal history of diseases of the skin and subcutaneous tissue; Z87.440 Personal history of urinary (tract) infections; Z87.42 Personal history of other diseases of the female genital tract; Z98.891 History of uterine scar from previous surgery; Z98.890 Other specified postprocedural states; Z71.51 Drug abuse counseling and surveillance of drug abuser; Z71.41 Alcohol abuse counseling and surveillance of alcoholic; Y92.009 Unspecified place in unspecified non-institutional (private) residence as the place of occurrence of the external cause; Z82.49 Family history of ischemic heart disease and other diseases of the circulatory system; Z83.3 Family history of diabetes mellitus; Z81.4 Family history of other substance abuse and dependence; Z81.8 Family history of other mental and behavioral disorders
CPT/HCPCS: 12001; 80053; 80306; 81001; 81025; 82075; 85025; 87635; 96372; 99285